=== PATIENT | female | born 1935 | race Caucasian/White ===

== ENCOUNTER 2024-11-12 10:41 | Outpatient (CLI) | payer MEDICARE, BC, SELFPAY ==
--- NOTE | 2024-11-12 13:13 | P.ANES_ITS ---
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
--- NOTE | 2024-11-12 13:13 | W.ANESCHARGE ---
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
== END 2024-11-12 10:42 | disposition home or self-care (01) ==
LOC: OP CLINIC 10:44
PROVIDERS: PCP Family Medicine; Visit Provider Internal Medicine Gastroenterology
DX: Z12.11 Encounter for screening for malignant neoplasm of colon (principal); D12.2 Benign neoplasm of ascending colon; D12.8 Benign neoplasm of rectum; K57.30 Diverticulosis of large intestine without perforation or abscess without bleeding; R10.13 Epigastric pain; R63.4 Abnormal weight loss; K31.89 Other diseases of stomach and duodenum; R19.8 Other specified symptoms and signs involving the digestive system and abdomen
CPT/HCPCS: 00813; 43239; 45385; 88305; 99100; J2371; J2704; J3010

== ENCOUNTER 2024-11-30 17:25 | Inpatient (IN) | payer MEDICARE, BC, SELFPAY ==
--- OUTSIDE RECORDS SUMMARY | 2024-11-30 17:30 | XMS_ITS | Clinical Summary ---
Author Organization [employer] Address [facility] [place] [address] Care Team Providers Care Senior Operations Analyst Name Role Phone Luana Bazan Primary Care Provider [phone]- [phone] Allergies Active Allergy Reactions Criticality Noted Date Comments Cephalexin Rash Low 09/30/2022 Morphine Itching 08/23/2012 Medications acetaminophen (TYLENOL EX STR ARTHRITIS PAIN) 500 mg tablet Take 1 tablet by mouth every 6 hours if needed. Max acetaminophen dose: 4000mg in 24 hrs. 0 02/12/20 14 Active Cholecalciferol, Vitamin D3, (VITAMIN D-3) 2,000 unit tablet Take 1 tablet by mouth once daily. 0 05/05/20 14 Active aspirin (ECOTRIN) 81 mg enteric coated tablet Take 1 tablet by mouth once daily with a meal. 0 10/26/19 16 Active Post Mastectomy BraIndications:His tory of mastectomy, left For personal use. 2 Packet 01/09/20 18 Active Breast ProsthesisIndicati ons:History of mastectomy, left Post mastectomy bra. For personal use.dx breast cancer 2 Each 10/25/19 22 Active Graduated Compression StockingsIndicatio ns:Bilateral lower extremity edema For personal use. Length: thigh Strength: 20-30 mmHg. Patient prefers open toe. 2 Packet 10/24/19 23 Active hydrocortisone (Cortizone-10) 1 % cream Apply topically to affected area(s) two times daily. Active triamcinolone 0.1 % ointmentIndication s:Stasis dermatitis Apply topically to affected area(s) two times daily. 30 g 2 02/16/20 24 Active amLODIPine (NORVASC) 5 mg tabletIndications: Essential hypertension Take 1 Tablet (5 mg) by mouth once daily. 90 Tablet 3 02/16/20 24 Active hydroCHLOROthiazid e 25 mg tabletIndications: Essential hypertension TAKE ONE TABLET BY MOUTH ONCE DAILY 90 Tablet 3 02/16/20 24 Active lisinopriL (PRINIVIL; ZESTRIL) 2.5 mg tabletIndications: Essential hypertension Take 1 Tablet (2.5 mg) by mouth once daily. 90 Tablet 3 02/16/20 24 Active metoprolol succinate (TOPROL XL) 100 mg Sustained-Release tabletIndications: Essential hypertension Take 1 Tablet (100 mg) by mouth once daily. 90 Tablet 02/16/20 24 Active pravastatin (PRAVACHOL) 40 mg tabletIndications: Hyperlipidemia, unspecified hyperlipidemia type One oral every other day at bedtime 45 Tablet 02/16/20 24 Active spironolactone (ALDACTONE) 25 mg tabletIndications: Essential hypertension,Bilat eral lower extremity edema Take 1 Tablet (25 mg) by mouth once daily in the morning. 90 Tablet 02/16/20 24 Active nitroglycerin (NITROSTAT) 0.4 mg sublingual tabletIndications: NSTEMI (non-ST elevation myocardial infarction) (HC) Place 1 Tablet (0.4 mg) under the tongue every 5 minutes if needed for Chest Pain. Up to 3 tablets in 15 minutes. 05/15/20 24 Active omeprazole 40 mg Delayed-Release capsuleIndications :Gastroesophageal reflux disease without esophagitis Take 1 Capsule (40 mg) by mouth once daily before a meal. 90 Capsule 11/05/19 25 Active polyethylene glycol-electrolyte 236-22.74-6.74 -5.86 gram suspensionIndicati ons:Encounter for screening colonoscopy Drink 2 liters the day before the procedure and 2 liters 6 hours prior to procedure. 4000 mL 11/10/19 25 Active amoxicillin 500 mg capsuleIndications :H. pylori infection Take 2 Capsules (1,000 mg) by mouth two times daily for 14 days. 56 Capsule 11/19/19 25 025 Active clarithromycin 500 mg tabletIndications: H. pylori infection Take 1 Tablet (500 mg) by mouth two times daily for 14 days. 28 Tablet 11/19/19 25 025 Active amoxicillin 500 mg capsuleIndications :H. pylori infection Take 2 Capsules (1,000 mg) by mouth two times daily for 14 days. 56 Capsule 11/19/19 25 025 Active Active Problems Problem Noted Date Diagnosed Date Stage 3b chronic kidney disease 11/05/2024 Essential hypertension 02/17/2024 Bilateral lower extremity edema 02/17/2024 Prediabetes 02/17/2024 Varicose veins of both lower extremities with pa in 02/17/2024 NSTEMI (non-ST elevation myocardial infarction) 02/16/2024 Edema, peripheral 12/19/2022 12/19/2022 Osteoarthritis of right hip 10/02/202209/18 Tendinitis involving right hip abductors 023 10/02/2022 Spinal stenosis, lumbar nicolas on, without neurogenic claudication 12/10/2016 Hyperlipidemia 04/19/2015 History of left breast cancer 05/19/2014 Hypertension 07/03/2010 Degeneration of Cervical Intervertebral Disc 09/2008 History of Laminectomy at L4-5 01/18/2009 Mod to Severe Lumbar Stenosis 01/18/2009 Resolved Problems Problem Noted Date Diagnosed Date Resolved Date Acute non Q wave GA (myocard ial infarction), initial episode of care 08/23/2012 04/29/2017 Encounters Date Type Department Care Team Description 11/22/2024 Telephone [facility] [address] [place] [address] Luana Bazan PA Questions (antibiotic and test result) 11/18/2024 Telephone [facility] [address] [place] [address] Luana Bazan PA Follow Up 11/18/2024 Orders Only [facility] [address] [place] [address] Luana Bazan PA Follow Up 11/18/2024 Telephone [facility] [address] [place] [address] Martin Raya MD Results (EGD & colonoscopy) 11/18/2024 Orders Only [facility] [address] [place] [address] Martin Raya MD <No scans attached> 11/16/2024 Telephone [facility] [address] [place] [address] Luana Bazan PA Questions 11/13/2024 Lab Requisition [facility] [phone] Martin Raya MD 11/13/2024 Lab Requisition [facility] [phone] Martin Raya MD 11/12/2024 12:45 PM CDT Office Visit [facility] at [address] [place] [address] Martin Raya MD 11/11/2024 10:30 AM CDT Office Visit [facility] [address] [facility] [place] [address] Luana Bazan PA Preoperative Exam (Dr. Raya[facility]-11/12/24-EGD /Colonoscopy) 11/11/2024 Travel 11/09/2024 Telephone [facility] [address] [facility] [address] Martin Raya MD Follow Up (Phone Call ) 11/09/2024 Telephone [facility] [address] [place] [address] Martin Raya MD Appointment 11/09/2024 Telephone [facility] [address] [place] [address] Martin Raya MD 11/09/2024 Orders Only [address] [address] Luana Bazan PA <No scans attached> 11/09/2024 Telephone [facility] [address] [place] [address] Luana Bazan PA Results (CT 11/08) 11/08/2024 3:30 PM CDT Ancillary Procedure [facility] [address] [facility] [place] [address] 11/08/2024 Travel 11/04/2024 2:50 PM CDT Office Visit [facility] [address] [place] [address] Luana Bazan PA Gi Problem (Pt states she can't eat and nothing tastes good and it's causing her stomach to [id number] not been sick but doesn't feel good-is losing weight) 11/04/2024 Travel 11/01/2024 Telephone [facility] [address] [place] [address] Cindy Castillo PA Weak; Dizziness from Last 3 Months Immunizations Immunization Administration Dates Next Due COVID-19 vaccine (Pfizer-Bio NTech 30mcg/0.3mL) 12YO+ BIVALENT PF, MDV 05/13/2022 COVID-19 vaccine (Pfizer-Bio NTech 30mcg/0.3mL) PF, MDV 06/18/2021,10/11/2020,09/20/2020 Influenza, High-dose Inactivated 04/22/2016,04/20,04/11/2014 Influenza, IIV3 (Age >=3 years) 04/22/20 13,07/02/2010,05/29/2009,2006 Influenza, Inactivated AIIV4 (Age 65+ Years) Preserv Free 04/01/2022,06/18/2021,06/16/2020 Influenza, Inactivated IIV3 (Age 65+ Years) Preserv Free 06/09/2019,06/03/2018,04/29/2017 Pneumococcal Poly,23-Valent (Pneumovax) 03/11/2004 Pneumococcal conj 13-Valent (Prevnar 13) 04/19/2015 Td (Age >=7 Years) 07/21/1997 Td, Preservative Free (age > = 7 Years) 09/09/2008 Tdap 03/03/2015 Family History Medical History Relation Name Comments Heart Disease Brother Cancer-breast Daughter Diabetes Mother Cancer-breast Other Niece Cancer-breast Sister 1 Diabetes Sister 1 3 sibs Cancer-breast Sister 2 Cancer-ovarian No Family History Relation Name Status Comments Brother Daughter Mother Other Niece Alive Sister 1 Sister 2 Social History Tobacco Use Types Packs/Day Years Used Date Smoking Tobacco: Never Smokeless Tobacco: Never Tobacco Cessation:Counseling Given: Yes Alcohol Use Standard Drinks/Week Comments Not Currently 0 (1 standard drink = 0.6 oz pur e alcohol) PHQ-2 Answer Date Recorded PHQ-2 TOTAL SCORE 0 02/16/2024 Social Connections Answer Date Recorded Do you often feel lonely or isolated from those around you? 0 11/04/2024 Financial Resource Strain Answer Date R ecorded Difficulty of Paying Living Expenses 3 11/04/2024 Difficulty of Paying Living Expenses Not on file 11/04/2024 Food Insecurity Answer Date Recorded Do you worry your food will run out before you are able to buy more? 1 11/04/2024 Transportation Needs Answer Date Record ed Does lack of transportation keep you from medica l appointments? 2 11/04/2024 Does lack of transportation keep you from work, meetings or getting things that you need? 1 11/04/2024 Housing Stability Answer Date Recorded What is your housing situation today? 1 11/04/2024 Utilities Answer Date Recorded Do you have trouble paying f or utilities (for example, heat, electricity, water, phone)? 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 Not on file Not on file Not on michelle e Obstetrics History Para Term AB IAB SAB Ectopic Multiple Livin g Live Births 5 5 5 Date Outcome GA Total Labor Labor/2nd/3rd Weight Sex Type Anes PTL Roberta A1 A5 Name Clin Term Term Term Term Term Last Filed Vital Signs Vital Sign Reading Time Taken Comments Blood Pressure 108/63 11/11/2024 10:33 AM CDT Pulse 53 11/11/2024 10:33 AM CDT Temperature 36.6 C (97.8 F) 02/13/2023 7:49 AM CDT Respiratory Rate 16 12/13/2016 7:45 AM CDT Oxygen Saturation 100% 11/11/2024 10:33 AM CDT Inhaled Oxygen Concentration - - Weight 77.1 kg (170 lb) 11/11/2024 10:33 AM CDT Height 160 cm (5' 3) 11/11/2024 10:33 AM CDT Body Mass Index 30.11 11/11/2024 10:33 AM CDT Plan of Treatment Health Maintenance Due Date Last Done Comments Zoster (shingles) series for age 50+ (1 of 2) 1985 RSV vaccine for adults or (1 - 1-dose 75+ series) 2010 COVID-19 vaccine series ( season) 2024 05/13/2022, 06/18/2021, 10/11/2020, Additional history exists Depression screening for age 12+ 02/15/2025 02/16/2024, 12/19/2022, 06/18/2021, Additional history exists Medicare Wellness for age 65+ 02/16/2025, 12/19/2022, 06/18/2021, Additional history exists Tetanus booster 03/03/2025 03/03/2015, 01/19, 09/09/2008, Additional history exists Influenza Vaccine (Season Ended) 2025 04/01/2022, 06/18/2021, 06/16/2020, Additional history exists BMI (ht and wt on same day) for age 18+ 11/11/2025 11/11/2024, 02/16/2024, 12/19/2022, Additional history exists Tdap Completed 03/03/2015, 03/03/2015 Pneumococcal series for age 50+ Completed 5, 03/11/2004 DEXA/DXA scan for age 65+ Completed 03/30/2018 Medical Devices Implanted Type Area Grinder Set Up Operator External Device Identifier Shelf Expiration Date Model / Serial / Lot [id number] ne 1-4mm 60cc Medtronic Fine Canclls Freeze Dried Implanted:Qty: 1 on 12/10/2016 by Evert Govea MD at [facility] Explanted:at [facility] (Quantity not on file) N/A: Spine Medtronic Spine/Ortho 07/01/2021 [id number] / [id number] / Bobby Lmbr 60x5.5mm Vitality Cvd Titnm - [id number] Implanted:Qty: 2 on 12/10/2016 by Evert Govea MD at [facility] N/A: Spine [employer] Spine [id number] 09# / / Set Screw Lmbr 5.5-6mm Vitality Torque - [id number] Implanted:Qty: 3 on 12/10/2016 by Evert Govea MD at [facility] N/A: Spine [employer] Spine [id number] 01# / / Set Screw Lmbr 5.5-6mm Vitality Shear Off - [id number] Implanted:Qty: 3 on 12/10/2016 by Evert Govea MD at [facility] N/A: Spine [employer] Spine [id number] 01# / / Screw Lmbr Post 6.5x45mm Vitality Va - [id number] Implanted:Qty: 6 on 12/10/2016 by Evert Govea MD at [facility] N/A: Spine [employer] Spine [id number] 75# / / Procedures Procedure Name Priority Date/Time Associated Diagnosis Comments LAB TRACKING EVENT Routine 11/12/2024 12 :56 PM CDT LAB TRACKING EVENT Routine 11/12/2024 12 :33 PM CDT PATH TISSUE EXAM Routine 11/12/2024 12:3 3 PM CDT COLONOSCOPY DIAGNOSTIC MARCO ANTONIO 7:09 AM CDT Unintentional weight loss Loss of appetite ESOPHAGOGASTRODUODENOSCOPY MAR[place] ANTONIO 11/12 12:00 AM CDT Unintentional weight loss Upper abdominal pain Loss of appetite CT ABDOMEN PELVIS WO MARCO ANTONIO 11/08/2024 3:41 PM CDT Weight loss Loss of appetite Upper abdominal pain CBC WITH AUTO DIFFERENTIAL Routine 11/04 3:37 PM CDT Weight loss COMP METABOLIC PANEL Routine 11/04/2024 3:37 PM CDT Weight loss LIPASE Routine 11/04/2024 3:37 PM CDT Weight loss C-REACTIVE PROTEIN Routine 11/04/2024 3: 37 PM CDT Weight loss SEDIMENTATION RATE Routine 11/04/2024 3: 37 PM CDT Weight loss TSH Routine 11/04/2024 3:37 PM CDT Weight loss SCAN-BONE DENSITOMETRY DEXA 03/21 12:00 AM CDT from Last 3 Months or Most Recently Relevant to Health Maintenance Results * LAB TRACKING EVENT (11/12/2024 12:56 PM CDT) Only the most recent of2 resultswithin the time period is included. Other (Other) Client Collect / Unknown 11/12/2024 12:56 PM CDT 11/13/2024 7:31 AM CDT us Martin Raya MD LAB BILL ONLY Final Res ult [facility] [address] [place] [address], * PATH TISSUE EXAM (11/12/2024 12:33 PM CDT) Case Report Pathology Report Case: [id number] Authorizing Provider: Martin Raya MD Collected: 11/12/2024 1233 Ordering Location: [facility] Received: 11/13/2024 1056 Pathologist: Queenie Medina DO Specimens: A) - Duodenum Biopsy B) - C) - D) - 11/17/2024 4:02 PM CDT [facility] Final Diagnosis A) DUODENUM, BIOPSY: 1. Normal duodenal mucosa 2. Negative for celiac disease and other enteropathy B) STOMACH, ANTRUM, BIOPSY: 1. Helicobacter gastritis (rare organisms identified on H&E stain) 2. Negative for atrophic gastritis and dysplasia 3. Sampling: Antral-duodenal transitional and antral mucosae C) STOMACH, BODY, BIOPSY: 1. Helicobacter gastritis (numerous organisms identified on H&E stain) 2. Negative for atrophic gastritis and dysplasia 3. Sampling: Body mucosa D) COLON, DESCENDING, POLYPECTOMIES: 1. Tubular adenoma (1) and sessile serrated adenomas (2, including larger polyp fragments) 2. Negative for high grade dysplasia 3. Per the colonoscopy report: a. Polyp sizes: 4 mm - 5 mm b. Resection: Complete c. Retrieval: Complete 11/17/2024 4:02 PM CDT [facility] at 1602 CDT Clinical Information Ms. Morrow is a 89 y.o. who presents for upper endoscopy examination and colonoscopy examination. Upper endoscopy revealed erythematous mucosa within the stomach and a normal duodenum. Colonoscopy examination revealed multiple polyps. 11/17/2024 4:02 PM CDT [facility] Gross Description A) Received in formalin are 5 bustamante mucosal fragments ranging from 2 mm to 4 mm in greatest dimension, which are entirely submitted in one cassette. It is labeled with the patient's name and designated duodenum biopsy. B) Received in formalin are 7 bustamante mucosal fragments ranging from 1 mm to 7 mm in greatest dimension, which are entirely submitted in one cassette. It is labeled with the patient's name and designated stomach, gastric antrum. C) Received in formalin are 7 bustamante mucosal fragments ranging from 1 mm to 6 mm in greatest dimension, which are entirely submitted in one cassette. It is labeled with the patient's name and designated stomach, gastric body. Toshia Pruitt 11/16/2024 11:00 AM D) Received in formalin, labeled with the patient's name and ascending colon multiple polyps, are 7 hernandez-bustamante polypoid soft tissues ranging 0.2-0.4 cm which are submitted in toto in 1 cassette. Time and date in formalin: 1256 on 11/12/2024 LDW 11/13/2024 11/17/2024 4:02 PM CDT [employer] [facility] EN[facility]AL LAB[facility]ATORY Microscopic Description The final diagnosis is based on microscopic examination of appropriate sections of all specimens. 11/17/2024 4:02 PM CDT [employer] [facility] Additional Information Interpreted at [facility] [employer] [facility], Central Laboratory - [address] [address] 11/17/2024 4:02 PM CDT [facility] [employer] [facility] Other (Duodenum Biopsy) 11/12/2024 12:33 PM CDT 11/13/2024 10:56 AM CDT Specimen (specimen) 11/12/2024 12:33 PM CDT 11/13/2024 10:56 AM CDT Specimen (specimen) 11/12/2024 12:33 PM CDT 11/13/2024 10:56 AM CDT Specimen (specimen) 11/12/2024 12:56 PM CDT 11/13/2024 12:12 PM CDT us Martin Raya MD PATHOLOGY/CYTOLOGY Final Result [facility] [address] [place] [id number], [place] * ESOPHAGOGASTRODUODENOSCOPY (11/12/2024 12:00 AM CDT) us Luana PEÑA GI PROCEDURE ORD Final Res ult * CT ABDOMEN PELVIS WO (11/08/2024 3:41 PM CDT) Anatomical Region Laterality Modality Abdomen, Pelvis, AORTA, LIVER, SPLEEN Computed Tomography 11/08/2024 4:12 PM CDT Addenda Addendum by Ok Marsh MD on 11/11/2024 11:14 AM CDT For Patients: As a result of the Century Cures Act, medical imaging exams and procedure reports are released immediately into your electronic medical record. You may view this report before your referring provider. If you have questions, please contact your health care provider. ADDENDUM: Correction to technique. Patient refused the IV contrast administration. The study was therefore performed without contrast only. CRL:jj INDICATION: Unintentional weight loss. Upper abdominal pain. Left mastectomy. TECHNIQUE : Contrast-enhanced abdominopelvic CT. 75 cc nonionic Omnipaque administered. A reduced dose reportedly was administered due to abnormal laboratory values. COMPARISON: None. FINDINGS: Surgically absent left breast. The visualized included right breast is unremarkable. Vascular calcifications within the coronary artery distribution and thoracic aorta. There are no pleural or pericardial effusions. Clear included lung bases. Few scattered low-dense lesions in liver likely cysts. No intrahepatic biliary ductal dilatation. The spleen, pancreas, and adrenal glands are normal. No hydronephrosis of either kidney. Small bilateral renal cysts. Small cyst lower pole left kidney with subtle peripheral calcifications likely a Bosniak II cyst. Nonvisualization of the gallbladder which may be surgically absent or completely contracted. Dense vascular calcification within the abdominal aorta and iliac arteries. The inferior vena cava is unremarkable. The stomach and duodenum although incompletely distended are within normal limits. There is no evidence for small or large bowel obstruction or ileus. No ascites or abdominal pelvic/inguinal lymphadenopathy. Vascular calcification within the uterus may reflect calcified fibroids as well as some arterial vascular calcification. No adnexal masses. No evidence for appendicitis or diverticular disease. The included skeleton demonstrates a 3 level lumbar spine fusion with bilateral pedicle screws at L3, L4, and L5. Degenerative disc disease at T11, less so at L1, as well as at L2 and L3. Multilevel degenerative facet arthropathy. There are no lytic or blastic lesions within the included skeleton and no acute fractures. IMPRESSION: 1. Surgically absent left breast. No pulmonary nodules in either lung base. 2. Few low-dense lesions the liver most likely cysts. 3. Small left renal cyst with peripheral mural calcifications (Bosniak II). 4. No convincing evidence for occult malignancy or metastatic disease. Please note that all CT scans at this facility use dose modulation, iterative reconstruction, and/or weight-based dosing when appropriate to reduce radiation dose to as low as reasonably achievable. Dictated by Ok Marsh MD @ 11/08/2024 4:12:06 PM Signed by: Ok Marsh @ 11/08/2024 4:12:06 PM (Electronic Signature) (Electronically Signed) Impressions 11/08/2024 4:12 PM CDT 1. Surgically absent left breast. No pulmonary nodules in either lung base. 2. Few low-dense lesions the liver most likely cysts. 3. Small left renal cyst with peripheral mural calcifications (Bosniak II). 4. No convincing evidence for occult malignancy or metastatic disease. Please note that all CT scans at this facility use dose modulation, iterative reconstruction, and/or weight-based dosing when appropriate to reduce radiation dose to as low as reasonably achievable. Dictated by Ok Marsh MD @ 11/08/2024 4:12:06 PM (Electronically Signed) Narrative 11/08/2024 4:12 PM CDT For Patients: As a result of the Century Cures Act, medical imaging exams and procedure reports are released immediately into your electronic medical record. You may view this report before your referring provider. If you have questions, please contact your health care provider. INDICATION: Unintentional weight loss. Upper abdominal pain. Left mastectomy. TECHNIQUE : Contrast-enhanced abdominopelvic CT. 75 cc nonionic Omnipaque administered. A reduced dose reportedly was administered due to abnormal laboratory values. COMPARISON: None. FINDINGS: Surgically absent left breast. The visualized included right breast is unremarkable. Vascular calcifications within the coronary artery distribution and thoracic aorta. There are no pleural or pericardial effusions. Clear included lung bases. Few scattered low-dense lesions in liver likely cysts. No intrahepatic biliary ductal dilatation. The spleen, pancreas, and adrenal glands are normal. No hydronephrosis of either kidney. Small bilateral renal cysts. Small cyst lower pole left kidney with subtle peripheral calcifications likely a Bosniak II cyst. Nonvisualization of the gallbladder which may be surgically absent or completely contracted. Dense vascular calcification within the abdominal aorta and iliac arteries. The inferior vena cava is unremarkable. The stomach and duodenum although incompletely distended are within normal limits. There is no evidence for small or large bowel obstruction or ileus. No ascites or abdominal pelvic/inguinal lymphadenopathy. Vascular calcification within the uterus may reflect calcified fibroids as well as some arterial vascular calcification. No adnexal masses. No evidence for appendicitis or diverticular disease. The included skeleton demonstrates a 3 level lumbar spine fusion with bilateral pedicle screws at L3, L4, and L5. Degenerative disc disease at T11, less so at L1, as well as at L2 and L3. Multilevel degenerative facet arthropathy. There are no lytic or blastic lesions within the included skeleton and no acute fractures. Procedure Note Ok Marsh MD - 11/08/2024 For Patients: As a result of the 21st Century Cures Act, medical imagingexams and procedure reports are released immediately into your electronicmedical record. You may view this report before your referring provider.If you have questions, please contact your health care provider. INDICATION: Unintentional weight loss. Upper abdominal pain. Left mastectomy. TECHNIQUE : Contrast-enhanced abdominopelvic CT. 75 cc nonionic Omnipaque administered. A reduced dose reportedly was administered due to abnormal laboratoryvalues. COMPARISON: None. FINDINGS: Surgically absent left breast. The visualized included right breast isunremarkable. Vascular calcifications within the coronary artery distribution andthoracic aorta. There are no pleural or pericardial effusions. Clear included lungbases. Few scattered low-dense lesions in liver likely cysts. No intrahepaticbiliary ductal dilatation. The spleen, pancreas, and adrenal glands are normal. No hydronephrosis of either kidney. Small bilateral renal cysts. Small cyst lower pole left kidney with subtle peripheral calcificationslikely a Bosniak II cyst. Nonvisualization of the gallbladder which may be surgically absent orcompletely contracted. Dense vascular calcification within the abdominal aorta and iliacarteries. The inferior vena cava is unremarkable. The stomach and duodenum although incompletely distended are within normallimits. There is no evidence for small or large bowel obstruction or ileus. No ascites or abdominal pelvic/inguinal lymphadenopathy. Vascular calcification within the uterus may reflect calcified fibroids aswell as some arterial vascular calcification. No adnexal masses. No evidence for appendicitis or diverticular disease. The included skeleton demonstrates a 3 level lumbar spine fusion withbilateral pedicle screws at L3, L4, and L5. Degenerative disc disease at T11, less so at L1, as well as at L2 and L3.Multilevel degenerative facet arthropathy. There are no lytic or blastic lesions within the included skeleton and noacute fractures. IMPRESSION: 1. Surgically absent left breast. No pulmonary nodules in either lungbase. 2. Few low-dense lesions the liver most likely cysts. 3. Small left renal cyst with peripheral mural calcifications (BosniakII). 4. No convincing evidence for occult malignancy or metastatic disease. Please note that all CT scans at this facility use dose modulation,iterative reconstruction, and/or weight-based dosing when appropriate toreduce radiation dose to as low as reasonably achievable. Dictated by Ok Marsh MD @ 11/08/2024 4:12:06 PM (Electronically Signed) us Luana PEÑA CT Edited Res ult - Final * (ABNORMAL) SEDIMENTATION RATE (11/04/2024 3:37 PM CDT) SED RATE BY MODIFIED WESTERGREN 55(H) < OR = 30 mm/h [facility] Blood BLOOD SPECIMEN / Unknown 11/04/2024 3:37 PM CDT 11/04/2024 3:38 PM CDT Narrative [facility] - 11/05/2024 7:02 AM CDT FASTING:NO FASTING: NO Luana PEÑA HEMATOLOGY Final Resu lt [facility] [address] [place] [address], [place] [phone] [facility] [address] [place] [address] * TSH (11/04/2024 3:37 PM CDT) TSH 1.40 0.40 - 4.50 mIU/L [facility] Blood BLOOD SPECIMEN / Unknown 11/04/2024 3:37 PM CDT 11/04/2024 3:38 PM CDT Narrative [facility] - 11/05/2024 5:44 AM CDT FASTING:NO FASTING: NO Luana PEÑA CHEMISTRY Final Resu lt Performing Organization Address [facility]/ZIP Co de Phone Number [facility] [address] [place] [address], [place] [phone] [facility] [address] [place] [address] * C-REACTIVE PROTEIN (11/04/2024 3:37 PM CDT) C-REACTIVE PROTEIN <3.0 <8.0 mg/L [facility] Blood BLOOD SPECIMEN / Unknown 11/04/2024 3:37 PM CDT 11/04/2024 3:38 PM CDT Narrative [facility] - 11/05/2024 10:57 AM CDT FASTING:NO FASTING: NO Luana PEÑA CHEMISTRY Final Resu lt Performing Organization Address City/[facility]/ZIP Co de Phone Number [facility] [address] [place] [address], [place] [phone] [facility] [address] [place] [address] * CBC AND DIFFERENTIAL (11/04/2024 3:37 PM CDT) [facility] WHITE BLOOD CELL COUNT 5.8 3.8 - 10.8 Thousand/u L [facility] RED BLOOD CELL COUNT 4.02 3.80 - 5.10 Million/uL [facility] HEMOGLOBIN 12.1 11.7 - 15.5 g/dL [facility] HEMATOCRIT 36.9 35.0 - 45.0 % [facility] MCV 91.8 80.0 - 100.0 fL [facility] MCH 30.1 27.0 - 33.0 pg [facility] MCHC 32.8 32.0 - 36.0 g/dL [facility] Comment: For adults, a slight decrease in the calculated MCHC value (in the range of 30 to 32 g/dL) is most likely not clinically significant; however, it should be interpreted with caution in correlation with other red cell parameters and the patient's clinical condition. RDW 12.8 11.0 - 15.0 % [facility] PLATELET COUNT 245 140 - 400 Thousand/u L [facility] MPV 11.0 7.5 - 12.5 fL [facility] ABSOLUTE NEUTROPHILS 3,399 1,500 - 7,800 cells/uL [facility] ABSOLUTE LYMPHOCYTES 1,473 850 - 3,900 cells/uL [facility] ABSOLUTE MONOCYTES 806 200 - 950 cells/uL [facility] ABSOLUTE EOSINOPHILS 70 15 - 500 cells/uL [facility] ABSOLUTE BASOPHILS 52 0 - 200 cells/uL [facility] NEUTROPHILS 58.6 % [facility] LYMPHOCYTES 25.4 % [facility] MONOCYTES 13.9 % [facility] EOSINOPHILS 1.2 % [facility] BASOPHILS 0.9 % [facility] Blood BLOOD SPECIMEN / Unknown 11/04/2024 3:37 PM CDT 11/04/2024 3:38 PM CDT Narrative [facility] - 11/05/2024 3:26 AM CDT FASTING:NO FASTING: NO Luana PEÑA HEMATOLOGY Final Resu lt Performing Organization Address [facility]/ZIP Co de Phone Number [employer] [facility] [address] [place] [address], [place] [phone] [facility] [address] [place] [address] * LIPASE (11/04/2024 3:37 PM CDT) Pathologist [facility] LIPASE 47 7 - 60 U/L [facility] Blood BLOOD SPECIMEN / Unknown 11/04/2024 3:37 PM CDT 11/04/2024 3:38 PM CDT Narrative [facility] - 11/05/2024 4:59 AM CDT FASTING:NO FASTING: NO Luana PEÑA CHEMISTRY Final Resu lt Performing Organization Address [facility]/ZIP Co de Phone Number [employer] [facility] [address] [place] [address], [place] [phone] [facility] [address] [place] [address] * (ABNORMAL) COMP METABOLIC PANEL (11/04/2024 3:37 PM CDT) GLUCOSE 104 65 - 139 mg/dL [facility] Comment: Non-fasting reference interval UREA NITROGEN (BUN) 45(H) 7 - 25 mg/dL [facility] CREATININE 1.68(H) 0.60 - 0.95 mg/dL [facility] EGFR 29(L) > OR = 60 mL/min/1.7 3m2 [facility] BUN/CREATININE RATIO 27(H) 6 - 22 (calc) [facility] SODIUM 139 135 - 146 mmol/L [facility] POTASSIUM 4.2 3.5 - 5.3 mmol/L [facility] CHLORIDE 105 98 - 110 mmol/L [facility] CARBON DIOXIDE 21 20 - 32 mmol/L [facility] CALCIUM 9.8 8.6 - 10.4 mg/dL [facility] PROTEIN, TOTAL 6.9 6.1 - 8.1 g/dL [facility] ALBUMIN 4.4 3.6 - 5.1 g/dL [facility] GLOBULIN 2.5 1.9 - 3.7 g/dL (calc) [facility] ALBUMIN/GLOBULIN RATIO 1.8 1.0 - 2.5 (calc) [facility] BILIRUBIN, TOTAL 0.4 0.2 - 1.2 mg/dL [facility] ALKALINE PHOSPHATASE 74 37 - 153 U/L [facility] AST 15 10 - 35 U/L [facility] ALT 12 6 - 29 U/L [facility] Blood BLOOD SPECIMEN / Unknown 11/04/2024 3:37 PM CDT 11/04/2024 3:38 PM CDT Narrative [facility] - 11/05/2024 4:59 AM CDT FASTING:NO FASTING: NO us Luana PEÑA CHEMISTRY Final Resu lt [facility] [address] [place] [address], [facility] [address] [place] [address] * SCAN-BONE DENSITOMETRY DEXA (03/30/2018 12:00 AM CDT) Anatomical Region Laterality Modality Other us Scanner OTHER Final Result from Last 3 Months or Most Recently Relevant to Health Maintenance Insurance MEDICARE PART A HB ONLY MEDICARE PART B HB ONLY [employer] [place] [employer] MR PB ONLY [employer] [place] HB ONLY Advance Directives * Full Code (Latest Code Status on File) Date Activated Date Inactivated Comments 12/10/2016 12:39 PM 12/13/2016 1:28 PM * Full Code Date Activated Date Inactivated Comments 12/10/2016 5:44 AM 12/10/2016 12:28 PM * Full Code Date Activated Date Inactivated Comments 08/23/2012 10:49 PM 08/26/2012 2:20 PM Care Teams Senior Operations Analyst Relationship Specialty Start Date End Date Luana Bazan PA [address] [place] [address] PCP - General Physician Explosive Technician 02/17/24
[2024-11-30 17:38] VITALS: BP 102/50; PULSE 63; RESP 18; TEMP 36.4; O2SAT 91; BMI 28.3
--- NOTE | 2024-11-30 17:45 | CRLHL7_ITS ---
For Patients: As a result of the Cures Act, medical imaging exams and procedure reports are released immediately into your electronic medical record. You may view this report before your referring provider. If you have questions, please contact your health care provider. INDICATION: Fall, pelvic hip injury TECHNIQUE: Pelvis radiograph, Hip radiograph 3 views left COMPARISON: None FINDINGS: Bone: No acute fractures or aggressive bone lesions are identified. 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 Moderate diffuse osteopenia is present. Joint: Mild bilateral hip osteoarthritis is noted. The visualized sacroiliac joints are unremarkable in appearance. The pubic symphysis is normal in appearance. Soft tissue: Unremarkable. No radiopaque foreign bodies are seen. IMPRESSION: 1. No acute osseous injuries or abnormalities are noted. Dictated by Luis Hutchison MD @ 11/30/2024 6:54:51 PM Dictated by: Luis Hutchison MD @ 11/30/2024 18:54:54 (Electronically Signed)
--- NOTE | 2024-11-30 18:21 | ED.GENADULT ---
HPI - General Adult General Date Seen: 11/30/24 Chief complaint: Fall/Minor Trauma Stated complaint: fall Time Seen by Provider: 11/30/24 17:34 History of Present Illness HPI narrative: Patient is an 89-year-old woman who lives independently, she has family who live nearby, she was walking out to the mailbox apparently using her walker, she says that she has neuropathy in sometimes she gets a sharp pain in her leg, this happened as she was walking and she fell landing on her left side. She has continued pain in her left upper thigh although it is not clear whether this is the pain that started before she fell or whether she has new pain since falling. Denies other injuries or complaints, has not walked since the injury. Denies head or neck injury. She is not anticoagulated. Her granddaughter is here with her. She was not given anything by paramedics. Related Data Home Medications ?Medication ?Instructions ?Recorded ?Confirmed allopurinol 100 mg tablet 300 mg PO QDAY 06/24/22 12/01/24 amlodipine 5 mg tablet 5 mg PO QDAY 06/24/22 12/01/24 hydrochlorothiazide 25 mg tablet 25 mg PO QDAY 06/24/22 12/01/24 metoprolol succinate 100 mg 100 mg PO DAILY 06/24/22 12/01/24 tablet,extended release 24 hr pravastatin 40 mg tablet 40 mg PO .qod 06/24/22 12/01/24 spironolactone 25 mg tablet 25 mg PO QDAY 06/24/22 12/01/24 lisinopril 2.5 mg tablet 2.5 mg PO QDAY 06/25/22 12/01/24 amoxicillin 500 mg capsule mg 12/01/24 aspirin 81 mg tablet,delayed mg 12/01/24 release clarithromycin 500 mg tablet mg 12/01/24 ibuprofen 200 mg tablet 400 mg PO TID PRN 12/01/24 12/01/24 omeprazole 40 mg capsule,delayed mg 12/01/24 release Allergies Allergy/AdvReac Type Severity Reaction Status Date / Time morphine Allergy Mild Itching Verified 10/14/22 14:23 Cephalexin Allergy Mild Rash Uncoded 09/30/22 07:47 [facility] Medical History (Updated 12/01/24 @ 00:40 by David Ford MD) Acute kidney injury ?N17.9 - Acute kidney failure, unspecified (ICD-10) Varicose veins of both lower extremities with pain (02/17/24) ?I83.813 - Varicose veins of bilateral lower extremities with pain (ICD-10) Stage 3b chronic kidney disease (11/05/24) ?N18.32 - Chronic kidney disease, stage 3b (ICD-10) Spinal stenosis of lumbar region (04/16/13) ?M48.061 - Spinal stenosis, lumbar region without neurogenic claudication (ICD-10) Prediabetes (02/17/24) ?R73.03 - Prediabetes (ICD-10) Malignant neoplasm of breast ?C50.919 - Malignant neoplasm of unspecified site of unspecified female breast (ICD-10) History of left breast cancer (05/19/14) ?Z85.3 - Personal history of malignant neoplasm of breast (ICD-10) Essential hypertension (02/17/24) ?I10 - Essential (primary) hypertension (ICD-10) Chronic back pain (04/16/13) ?M54.9 - Dorsalgia, unspecified (ICD-10) ?G89.29 - Other chronic pain (ICD-10) Acute shoulder pain ?M25.519 - Pain in unspecified shoulder (ICD-10) Acute low back pain (04/16/13) ?M54.50 - Low back pain, unspecified (ICD-10) Tendinitis involving right hip abductors (10/02/22) ?M76.891 - Other specified enthesopathies of right lower limb, excluding foot (ICD-10) Spinal stenosis, lumbar region, without neurogenic claudication (12/10/16) ?M48.061 - Spinal stenosis, lumbar region without neurogenic claudication (ICD-10) Osteoarthritis of right hip (10/02/22) ?M16.11 - Unilateral primary osteoarthritis, right hip (ICD-10) NSTEMI (non-ST elevation myocardial infarction) (02/16/24) ?I21.4 - Non-ST elevation (NSTEMI) myocardial infarction (ICD-10) Hypertension (07/03/10) ?I10 - Essential (primary) hypertension (ICD-10) Hyperlipidemia (04/19/15) ?E78.5 - Hyperlipidemia, unspecified (ICD-10) Edema, peripheral (12/19/22) ?R60.0 - Localized edema (ICD-10) Degeneration of cervical intervertebral disc (02/20/09) ?M50.30 - Other cervical disc degeneration, unspecified cervical region (ICD-10) Bilateral lower extremity edema (02/17/24) ?R60.0 - Localized edema (ICD-10) Malnutrition ?E46 - Unspecified protein-calorie malnutrition (ICD-10) Weight loss, non-intentional ?R63.4 - Abnormal weight loss (ICD-10) Poor appetite ?R63.0 - Anorexia (ICD-10) Bad taste in mouth ?R43.8 - Other disturbances of smell and taste (ICD-10) Non-STEMI (non-ST elevated myocardial infarction) ?I21.4 - Non-ST elevation (NSTEMI) myocardial infarction (ICD-10) Bilateral lower extremity edema ?R60.0 - Localized edema (ICD-10) Degeneration of cervical intervertebral disc ?M50.30 - Other cervical disc degeneration, unspecified cervical region (ICD-10) Hypertension ?I10 - Essential (primary) hypertension (ICD-10) Hyperlipidemia ?E78.5 - Hyperlipidemia, unspecified (ICD-10) Spinal stenosis of lumbar region without neurogenic claudication ?M48.061 - Spinal stenosis, lumbar region without neurogenic claudication (ICD-10) Surgical History H/O bilateral cataract extraction (10/08/10) ?Z98.41 - Cataract extraction status, right eye (ICD-10) ?Z98.42 - Cataract extraction status, left eye (ICD-10) 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) ?Z96.652 - Presence of left artificial knee joint (ICD-10) Status post total right knee replacement using cement (03/06/04) ?Z96.651 - Presence of right artificial knee joint (ICD-10) History of left mastectomy ?Z90.12 - Acquired absence of left breast and nipple (ICD-10) History of cholecystectomy ?Z90.49 - Acquired absence of other specified parts of digestive tract (ICD-10) History of appendectomy ?Z90.49 - Acquired absence of other specified parts of digestive tract (ICD-10) History of laminectomy ?Z98.890 - Other specified postprocedural states (ICD-10) History of left breast biopsy ?Z98.890 - Other specified postprocedural states (ICD-10) Family History (Updated 12/01/24 @ 00:29 by David Ford MD) Sister Breast cancer Diabetes Daughter Breast cancer Mother Diabetes Other Heart disease Social History (Updated 12/01/24 @ 00:31 by David Ford MD) Narrative: , lives in apartment in [place] by herself. Family nearby for support. She does not smoke. She rarely drinks alcohol. Code status is DNR. Her son Kalra and granddaughter Bianca would be healthcare power of prosecuting attorney Smoking Status: Never smoker Do you use any of these nicotine containing products: None Second hand tobacco smoke exposure: No How often do you have a drink containing alcohol: never How often do you have six or more drinks on one occasion: Never AUDIT-C Alcohol total score: 0 Non-prescribed substance use: denies use Exam Narrative: Exam Narrative: Vital signs reviewed In general, alert, nontoxic elderly woman, she looks comfortable. Head: Normocephalic, atraumatic. Eyes: Sclera clear. Pupils equal and reactive. ENT: Mucous membranes moist. Neck: Supple without adenopathy. Nontender to palpation. Heart: Regular rate and rhythm without murmur. Lungs: Clear. No increased work of breathing, crackles or wheezes. Abdomen: Soft, nontender to palpation. Extremities: Well perfused, pulses intact. No significant edema. She has a lipoma on her left upper thigh. No other swelling, bruising or deformity. No tenderness to palpation. She notes some pain near that lipoma when I range her left hip, but does not seem to have any pain in the hip itself, she does not have any pain at all with internal-external rotation of hip. Right hip is normal. Upper extremities normal. Neurologic: Alert, conversant. Speech fluent, face symmetric. Moves all extremities equally. Skin: Warm, dry well perfused. Affect: Normal. Const: Vital Signs, click to edit/add: Vital Signs - 24 hr 11/30/24 17:38 11/30/24 21:11 11/30/24 23:07 Temperature 97.5 F L Pulse Rate 61 65 Pulse Rate [Pulse Oximeter] 63 Respiratory Rate 18 16 16 Blood Pressure 108/59 L 117/53 L Blood Pressure [Ri ght Upper Arm] 102/50 L Pulse Oximetry 91 99 98 Oxygen Delivery Me thod Room Air Room Air Room Air Course Course ED Course: I ordered x-rays of the left hip, I do not see any obvious fracture. She says at home she takes ibuprofen, she does note that her doctor would like her to take Tylenol instead but Tylenol does not help her so she takes ibuprofen. As such, will give her a couple of ibuprofen here, and see how she feels standing on that leg. Patient was ambulatory with her walker without difficulty. Discussed discharge home, her granddaughter did express that she had concerns about her going home because she has not had an appetite and was wondering if she could stay in hospital. We talked about the fact that staying in the hospital simply due to lack of appetite would probably be difficult, but I did suggest we check some labs just to see if there is anything that would require hospitalization in terms of electrolytes, dehydration etcetera. Her CBC was unremarkable but her metabolic panel showed marked acute kidney injury with a creatinine of 8.3. Her BUN is elevated at 93, her potassium was 5.7. She is acidotic with a CO2 of 11 and gap is elevated at 23 this is likely related to her uremia. In talking with her, she does continue to make urine although it sounds like she is not urinating particularly frequently. She did provide a urine sample here, this is notable for 5-10 red cells and 25-50 white blood cells moderate squamous cells many bacteria. 3+ protein. I have discussed her lab findings with the patient and her granddaughter. Reviewed the serious nature of her kidney disease, discussed dialysis as a concept, at this time I am not sure that the patient is entirely cognitively able to make this kind of decision tonight, I suspect that family will want to talk with her more about it. Right now, she is suggesting to me that she would simply want to remain comfortable if her kidneys do not improve with conservative measures. She did complain of some back pain which she indicated was in the mid low back, she said that this had been hurting since she fell although she did not mention it when we initially talked. In any case, I did order a CT scan of the abdomen and pelvis without contrast, and she had recounts done of the lumbar spine. No significant findings aside from degenerative changes. She had 0.25 mg of Dilaudid for pain control. Care discussed with Dr. Ford who has accepted her to the hospitalist service. I ordered D5W with sodium bicarb for initial fluid management. Vital Signs Vital signs: Initial Vital Signs Temperature 97.5 F L 11/30/24 17:38 Temperature Source Temporal Artery Scan 11/30/24 17:38 Pulse Rate 63 11/30/24 17:38 Respiratory Rate 18 11/30/24 17:38 Blood Pressure 102/50 L 11/30/24 17:38 Blood Pressure Mean 67 L 11/30/24 17:38 Blood Pressure Position Sitting 11/30/24 17:38 Pulse Oximetry 91 11/30/24 17:38 Oxygen Delivery Method Room Air 11/30/24 17:38 Vital Signs Temperature 97.5 F L 11/30/24 17:38 Pulse Rate 63 11/30/24 17:38 Respiratory Rate 18 11/30/24 17:38 Blood Pressure 102/50 L 11/30/24 17:38 Pulse Oximetry 91 11/30/24 17:38 Oxygen Delivery Method Room Air 11/30/24 17:38 Temperature 97.5 F L 11/30/24 17:38 Pulse Rate 65 11/30/24 23:07 Respiratory Rate 16 11/30/24 23:07 Blood Pressure 117/53 L 11/30/24 23:07 Pulse Oximetry 98 11/30/24 23:07 Oxygen Delivery Method Room Air 11/30/24 23:07 Medications Administered Medications: Generic Name Dose Route Start Last Admin Trade Name Freq PRN Reason Stop Dose Admin Sodium Bicarbonate 150 meq/ 1,150 mls @ 250 mls/hr 12/01/24 00:20 12/01/24 00:43 Dextrose IV 12/01/24 04:55 Not Given .Q4H36M ALBAN Discontinued Medications Generic Name Dose Route Start Last Admin Trade Name Freq PRN Reason Stop Dose Admin Hydromorphone HCl 0.25 mg 11/30/24 22:19 11/30/24 23:02 Hydromorphone 0.5 Mg/0.5 Ml Inj IVP 11/30/24 22:20 0.25 mg ONCE ONE Administration Sodium Bicarbonate 150 meq/ 1,150 mls @ 150 mls/hr 11/30/24 22:00 12/01/24 00:45 Dextrose IV 12/01/24 05:39 250 mls/hr .Q7H40M ALBAN Infusion Sodium Bicarbonate 250 meq/ 1,250 mls @ 150 mls/hr 12/01/24 00:02 12/01/24 00:45 Dextrose IV 12/01/24 08:19 Not Given .Q8H20M ALBAN Ibuprofen 400 mg 11/30/24 18:08 11/30/24 18:23 Ibuprofen 200 Mg Tablet PO 11/30/24 18:09 400 mg ONCE ONE Administration Medical Decision Making Lab Data Lab results reviewed: Yes I reviewed the patient's lab results Labs: Lab Results 11/30/24 11/30/24 11/30/24 Range/Units 19:36 20:35 21:18 WBC 7.77 (4.50-11.00) K/uL RBC 3.70 L (4.00-5.20) m/uL Hgb 11.1 L (12.0-16.0) gm/dL Hct 33.6 (33.0-51.0) % MCV 91 (80-100) fL MCH 30 (26-34) pg MCHC 33 (32-36) gm/dL RDW Coeff of James 13.6 (11.5-15.5) % Plt Count 201 (140-440) K/uL Neut % (Auto) 73.0 H (42.0-72.0) % Lymph % (Auto) 14.8 L (20-44) % Stephens % (Auto) 10.9 (0.0-11.0) % Eos % (Auto) 0.5 (0.0-7.0) % Baso % (Auto) 0.5 (0.0-3.0) % Neut # (Auto) 5.70 (1.7-7.0) K/uL Lymph # (Auto) 1.10 (0.90-2.90) K/uL Stephens # (Auto) 0.80 (0.00-0.90) K/UL Eos # (Auto) 0.04 (0.00-0.50) K/uL Baso # (Auto) 0.04 (0.00-0.30) K/uL Abs Immat Gran (auto) 0.02 (0.00-0.30) K/uL Imm/Tot Granulo (auto) 0.3 % Sodium 133 L 135 (135-149) mmol/L Potassium 5.8 H 5.7 H (3.6-5.1) mmol/L Chloride 101 101 (96-114) mmol/L Carbon Dioxide 12 L 11 L (20-32) mmol/L Anion Gap 20 H 23 H (7-15) mEq/L BUN 95 H 95 H (7-30) mg/dL Creatinine 8.3 H 8.4 H (0.5-1.5) mg/dL Estimated Creat Clear 3.47 3.43 Estimated GFR 4 4 ml/min Glucose 110 120 H (60-115) mg/dL Uric Acid 10.3 H (2.2-8.4) mg/dL Calcium 9.7 10.0 (8.4-10.6) mg/dL Phosphorus 7.5 H* (2.5-4.5) mg/dL Magnesium 2.5 (1.5-2.6) mg/dL Urine Color Yellow (Yellow) Urine Appearance Cloudy A (Clear) Urine pH 6.5 (5.0-8.5) Ur Specific Randolph 1.025 (1.000-1.030) Urine Protein 3+ A (Negative) Urine Glucose (UA) Negative (Negative) Urine Ketones Trace A (Negative) Urine Blood 3+ A (Negative) Urine Nitrite Negative (Negative) Urine Bilirubin 1+ A (Negative) Urine Urobilinogen 0.2 (0.2-1.0) Ur Leukocyte Esterase 3+ A (Negative) Urine RBC 5-10 A (0-2) Urine WBC 25-50 A (0-5) Ur Squamous Epith Cells Moderate A (None-Few) Amorphous Sediment Few A (None) Urine Bacteria Many A (None) Lab Acknowledgement 11/30/24 Range/Units 22:46 WBC (4.50-11.00) K/uL RBC (4.00-5.20) m/uL Hgb (12.0-16.0) gm/dL Hct (33.0-51.0) % MCV (80-100) fL MCH (26-34) pg MCHC (32-36) gm/dL RDW Coeff of James (11.5-15.5) % Plt Count (140-440) K/uL Neut % (Auto) (42.0-72.0) % Lymph % (Auto) (20-44) % Stephens % (Auto) (0.0-11.0) % Eos % (Auto) (0.0-7.0) % Baso % (Auto) (0.0-3.0) % Neut # (Auto) (1.7-7.0) K/uL Lymph # (Auto) (0.90-2.90) K/uL Stephens # (Auto) (0.00-0.90) K/UL Eos # (Auto) (0.00-0.50) K/uL Baso # (Auto) (0.00-0.30) K/uL Abs Immat Gran (auto) (0.00-0.30) K/uL Imm/Tot Granulo (auto) % Sodium (135-149) mmol/L Potassium (3.6-5.1) mmol/L Chloride (96-114) mmol/L Carbon Dioxide (20-32) mmol/L Anion Gap (7-15) mEq/L BUN (7-30) mg/dL Creatinine (0.5-1.5) mg/dL Estimated Creat Clear Estimated GFR ml/min Glucose (60-115) mg/dL Uric Acid (2.2-8.4) mg/dL Calcium (8.4-10.6) mg/dL Phosphorus (2.5-4.5) mg/dL Magnesium (1.5-2.6) mg/dL Urine Color (Yellow) Urine Appearance (Clear) Urine pH (5.0-8.5) Ur Specific Randolph (1.000-1.030) Urine Protein (Negative) Urine Glucose (UA) (Negative) Urine Ketones (Negative) Urine Blood (Negative) Urine Nitrite (Negative) Urine Bilirubin (Negative) Urine Urobilinogen (0.2-1.0) Ur Leukocyte Esterase (Negative) Urine RBC (0-2) Urine WBC (0-5) Ur Squamous Epith Cells (None-Few) Amorphous Sediment (None) Urine Bacteria (None) Lab Acknowledgement Test Added Imaging Data hip xray: Attestation: I have reviewed the pertinent imaging results. Radiologist's impression: Patient: Rossana Morrow MR#: [id number] : 1935 Acct:[id number] Loc: ED Service Date: 11/30/[address]: Ordering Physician: Luana Montelongo M.D. Date of Service: 11/30/24 Procedure(s): XR hip LT min 2V Accession Number(s): [id number] cc: Luana Montelongo M.D.; Provider,Not a Local~ For Patients: As a result of the Cures Act, medical imaging exams and procedure reports are released immediately into your electronic medical record. You may view this report before your referring provider. If you have questions, please contact your health care provider. INDICATION: Fall, pelvic hip injury TECHNIQUE: Pelvis radiograph, Hip radiograph 3 views left COMPARISON: None FINDINGS: Bone: No acute fractures or aggressive bone lesions are identified. 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 Moderate diffuse osteopenia is present. Joint: Mild bilateral hip osteoarthritis is noted. The visualized sacroiliac joints are unremarkable in appearance. The pubic symphysis is normal in appearance. Soft tissue: Unremarkable. No radiopaque foreign bodies are seen. IMPRESSION: 1. No acute osseous injuries or abnormalities are noted. Dictated by Luis Hutchison MD @ 11/30/2024 6:54:51 PM Dictated by: Luis Hutchison MD @ 11/30/2024 18:54:[address]: Attestation: I have reviewed the pertinent imaging results. Radiologist's impression: Patient: Rossana Morrow MR#: [id number] : 1935 Acct:[id number] Loc: [id number] - MED-1 Service Date: 11/30/[address]: David Ford M.D. Ordering Physician: David Ford M.D. Date of Service: 11/30/24 Procedure(s): CT lumbar spine wo con Accession Number(s): [id number] cc: David Ford M.D.; Provider,Not a Local~ For Patients: As a result of the Cures Act, medical imaging exams and procedure reports are released immediately into your electronic medical record. You may view this report before your referring provider. If you have questions, please contact your health care provider. Indication: Back injury Technique: Noncontrast CT through the lumbar spine with multiplanar reformats Comparison: Lumbar spine MRI performed 04/15/2013 Findings: Alignment: Mild leftward spinal curvature. Mild L2-3 retrolisthesis. Mild L4-5 anterolisthesis in fixation. Mild L5-S1 anterolisthesis. Bones: L3-5 posterior wyatt and screw fixation. Lumbar levels: No acute abnormality appreciated. Moderate to severe degenerative changes appearing greatest at L1-2. Probable high-grade stenosis at L2-3. Soft tissues: Postoperative changes to the soft tissues of the back. Impression: Postoperative changes and multilevel spondylosis and spondylolisthesis with no acute abnormality appreciated. Please note that all CT scans at this facility use dose modulation, iterative reconstruction, and/or weight-based dosing when appropriate to reduce radiation dose to as low as reasonably achievable. Dictated by Jaskaran Zapata MD @ 12/01/2024 12:03:[address] scan - abdomen: Attestation: I have reviewed the pertinent imaging results. Radiologist's impression: Patient: Rossana Morrow MR#: [id number] : 1935 Acct:[id number] Loc: ED Service Date: 11/30/[address]: Ordering Physician: Luana Montelongo M.D. Date of Service: 11/30/24 Procedure(s): CT abdomen pelvis wo con Accession Number(s): [id number] cc: Luana Montelongo M.D.; Provider,Not a Local~ For Patients: As a result of the Cures Act, medical imaging exams and procedure reports are released immediately into your electronic medical record. You may view this report before your referring provider. If you have questions, please contact your health care provider. INDICATION: Back pain after fall, DIYA. TECHNIQUE: CT abdomen and pelvis without contrast. COMPARISON: CT abdomen and pelvis 06/17/2022. FINDINGS: Lower chest: The lung bases are clear. Coronary artery calcification. Liver: Unchanged cyst within the left hepatic lobe. Several too small to characterize subcentimeter hypodense foci scattered throughout the rest of the liver. Normal size and contour. Gallbladder and bile ducts: Status post cholecystectomy. No abnormal biliary ductal dilatation. Pancreas: Unremarkable. No mass or inflammation. Spleen: Normal in size. No masses. Adrenal glands: Normal in size. No nodules. Kidneys: Left renal cyst. Normal in size. No suspicious masses, stones, or hydronephrosis. GI tract: Diverticulosis without pericolonic inflammation. No obstruction. Prior appendectomy. Vasculature: Normal caliber abdominal aorta with mild atherosclerotic calcification. Lymph nodes: No lymphadenopathy. Peritoneum/Abdominal Wall: Tiny fat-containing bilateral inguinal hernias. No free air or significant free fluid. Pelvis: Small calcified uterine fibroids. No pelvic masses. Bones: L3-L5 posterior fusion. Otherwise, unremarkable for age. IMPRESSION: 1. No acute findings within the abdomen and pelvis. No evidence for an acute fracture. 2. Several nonacute findings, as above. Please note that all CT scans at this facility use dose modulation, iterative reconstruction, and/or weight-based dosing when appropriate to reduce radiation dose to as low as reasonably achievable. Dictated by Castro Hunt MD @ 11/30/2024 10:34:39 PM
[2024-11-30] MEDS: IBUPROFEN 200 MG TABLET 400 MG PO (18:23)
--- OUTSIDE RECORDS SUMMARY | 2024-11-30 18:23 | XMS_ITS | Clinical Summary ---
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), initial episode of care 08/23/2012 04/29/2017 Encounters Date Type Department Care Team Description 11/22/2024 Telephone [facility] [address] [place] [address] Luana Bazan PA Questions (antibiotic and test result) 11/18/2024 Telephone [facility] [address] [place] [address] Luana Bazan PA Follow Up 11/18/2024 Orders Only [facility] [address] [place] [address] Luana Bazan PA Follow Up 11/18/2024 Telephone [facility] [address] [place] [address] Martin Raya MD Results (EGD & colonoscopy) 11/18/2024 Orders Only [facility] [address] [place] [address] Martin Raya MD <No scans attached> 11/16/2024 Telephone [facility] [address] [facility] [place] [address] Luana Bazan PA Questions 11/13/2024 Lab Requisition [facility] [phone] Martin Raya MD 11/13/2024 Lab Requisition [facility] [phone] Martin Raya MD 11/12/2024 12:45 PM CDT Office Visit [facility] at [address] [place] [address] Martin Raya MD 11/11/2024 10:30 AM CDT Office Visit [facility] [address] [facility] [address] Luana Bazan PA Preoperative Exam (Dr. Raya[facility]-11/12/24-EGD /Colonoscopy) 11/11/2024 Travel 11/09/2024 Telephone [facility] [address] [facility] [place] [address] Martin Raya MD Follow Up (Phone Call ) 11/09/2024 Telephone [facility] [address] [facility] [place] [address] Martin Raya MD Appointment 11/09/2024 Telephone [facility] [address] [facility] [place] [address] Martin Raya MD 11/09/2024 Orders Only [address] [address] Luana Bazan PA <No scans attached> 11/09/2024 Telephone [facility] [address] [place] [address] Luana Bazan PA Results (CT 11/08) 11/08/2024 3:30 PM CDT Ancillary Procedure [facility] [address] [facility] [address] 11/08/2024 Travel 11/04/2024 2:50 PM CDT Office Visit [facility] [address] [place] [address] Luana Bazan PA Gi Problem (Pt states she can't eat and nothing tastes good and it's causing her stomach to [id number] not been sick but doesn't feel good-is losing weight) 11/04/2024 Travel 11/01/2024 Telephone [facility] [address] [place] [address] Cindy Castillo PA Weak; Dizziness from Last [...] on file 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 Gender Identity Not on file Sexual Orientation Not on file 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 Not on file Not on file [...] Completed 03/30/2018 Medical Devices Implanted Type Area Technology Instructor Device Identifier Shelf Expiration Date Model / Serial / Lot [id number] 1-4mm 60cc Medtronic Fine Canclls Freeze Dried Implanted:Qty: 1 on 12/10/2016 by Evert Govea MD at [facility] Explanted:at [facility] (Quantity not on file) N/A: Spine Medtronic Spine/Ortho 07/01/2021 [id number]# / [id number] / Bobby Lmbr 60x5.5mm Vitality Cvd Titnm - [id number] Implanted:Qty: 2 on 12/10/2016 by Evert Govea MD at [facility] N/A: Spine Kirsty [employer] Spine [id number] 09# / / Set Screw Lmbr 5.5-6mm Vitality Torque - [id number] Implanted:Qty: 3 on 12/10/2016 by Evert Govea MD at [facility] N/A: Spine [employer] Spine 07.60025.0 01# / / Set Screw Lmbr 5.5-6mm Vitality Shear Off - [id number] Implanted:Qty: 3 on 12/10/2016 by Evert Govea MD at [facility] N/A: Spine [employer] Spine 07.36032.0 01# / / Screw Lmbr Post 6.5x45mm Vitality Va - [id number] Implanted:Qty: 6 on 12/10/2016 by Evert Govea MD at [facility] N/A: Spine [employer] Spine [id number] 75# / / Procedures Procedure Name Priority [...] MD LAB BILL ONLY Final Res ult [facility] [address] [place] [address], * PATH TISSUE EXAM (11/12/2024 12:33 PM CDT) Case Report Pathology Report Case: [id number] Authorizing Provider: Martin Raya MD Collected: 11/12/2024 1233 Ordering Location: [facility] Received: 11/13/2024 1056 Pathologist: Queenie Medina DO Specimens: A) - Duodenum Biopsy B) - C) - D) - 11/17/2024 4:02 PM CDT [facility] Final Diagnosis [...] c. Retrieval: Complete 11/17/2024 4:02 PM CDT [facility] at 1602 CDT Clinical Information Ms. Morrow is a 89 y.o. who presents for upper endoscopy examination and colonoscopy examination. Upper endoscopy revealed erythematous mucosa within the stomach and a normal duodenum. Colonoscopy examination revealed multiple polyps. 11/17/2024 4:02 PM CDT [facility] Gross Description A) Received in [...] 11/12/2024 LDW 11/13/2024 11/17/2024 4:02 PM CDT [employer] [facility] LAB[facility]ORY Microscopic Description The final diagnosis is based on microscopic examination of appropriate sections of all specimens. 11/17/2024 4:02 PM CDT [employer] [facility]AL LABORATORY Additional Information Interpreted at [facility] [employer] [facility] Central Laboratory - [address], [place] [address] 11/17/2024 4:02 PM CDT [facility] [employer] [facility] ENTRAL LABORATORY Other (Duodenum Biopsy) 11/12/2024 12:33 PM CDT 11/13/2024 10:56 AM CDT Specimen (specimen) 11/12/2024 12:33 PM CDT 11/13/2024 10:56 AM CDT Specimen (specimen) 11/12/2024 12:33 PM CDT 11/13/2024 10:56 AM CDT Specimen (specimen) 11/12/2024 12:56 PM CDT 11/13/2024 12:12 PM CDT us Martin Raya MD PATHOLOGY/CYTOLOGY Final Result [facility] [address] [place] [address], [place] * ESOPHAGOGASTRODUODENOSCOPY (11/12/2024 12:00 AM CDT) [...] PEÑA HEMATOLOGY Final Resu lt [facility] [address] [place] [address], [place] [phone] [facility] [address] [place] [address] * TSH (11/04/2024 3:37 PM CDT) TSH 1.40 0.40 - 4.50 mIU/L [facility] Blood BLOOD SPECIMEN / Unknown 11/04/2024 3:37 PM CDT 11/04/2024 3:38 PM CDT Narrative [facility] - 11/05/2024 5:44 AM CDT FASTING:NO FASTING: NO Luana PEÑA CHEMISTRY Final Resu lt Performing Organization Address [facility]/ZIP Co de Phone Number [facility] [address] [place] [address], [place] [phone] [facility] [address] [place] [address] * C-REACTIVE PROTEIN (11/04/2024 3:37 PM CDT) C-REACTIVE PROTEIN <3.0 <8.0 mg/L [facility] Blood BLOOD SPECIMEN / Unknown 11/04/2024 3:37 PM CDT 11/04/2024 3:38 PM CDT Narrative [facility] - 11/05/2024 10:57 AM CDT FASTING:NO FASTING: NO Luana PEÑA CHEMISTRY Final Resu lt Performing Organization Address City/[facility]/ZIP Co de Phone Number [facility] [address] [place] [address], [place] [phone] [facility] [address] [place] [address] * CBC AND DIFFERENTIAL (11/04/2024 3:37 PM CDT) [facility] WHITE BLOOD CELL COUNT 5.8 3.8 - [...] COUNT 245 140 - 400 Thousand/u L [facility] MPV 11.0 7.5 - [...] HEMATOLOGY Final Resu lt Performing Organization Address [facility]/ZIP Co de Phone Number [employer] [facility] [address] [place] [address], [place] [phone] [facility] [address] [place] [address] * LIPASE (11/04/2024 3:37 PM CDT) Pathologist [facility] LIPASE 47 7 - 60 U/L [facility] Blood BLOOD SPECIMEN / Unknown 11/04/2024 3:37 PM CDT 11/04/2024 3:38 PM CDT Narrative [facility] - 11/05/2024 4:59 AM CDT FASTING:NO FASTING: NO Luana PEÑA CHEMISTRY Final Resu lt Performing Organization Address [facility]/ZIP Co de Phone Number [employer] [facility] [address] [place] [address], [place] [phone] [facility] [address] [place] [address] * (ABNORMAL) COMP METABOLIC PANEL (11/04/2024 3:37 PM CDT) GLUCOSE 104 65 - 139 mg/dL [facility] Comment: Non-fasting reference interval UREA [...] PEÑA CHEMISTRY Final Resu lt [facility] [address] [place] [address], [facility] [address] [place] [address] * SCAN-BONE DENSITOMETRY DEXA (03/30/2018 12:00 AM CDT) Anatomical Region Laterality Modality Other us Scanner OTHER Final Result from Last 3 Months or Most Recently Relevant to Health Maintenance Insurance MEDICARE PART A HB ONLY MEDICARE PART B HB ONLY [employer] BLUE MR PB ONLY [employer] BLUE HB ONLY Advance Directives * Full Code (Latest Code Status on File) Date Activated Date Inactivated Comments 12/10/2016 12:39 PM 12/13/2016 1:28 PM * Full Code Date Activated Date Inactivated Comments 12/10/2016 5:44 AM 12/10/2016 12:28 PM * Full Code Date Activated Date Inactivated Comments 08/23/2012 10:49 PM 08/26/2012 2:20 PM Care Teams Wood Stainer Relationship Specialty Start Date End Date Luana Bazan PA [address] [place] [address] PCP - General Physician Maintenance Supervisor 2Nd Shift 02/17/24
[2024-11-30 19:42] LABS: Basophils Absolute Auto 0.04 K/uL (0.00-0.30); Basophils Percent Auto 0.5 % (0.0-3.0); Eosinophils Absolute Auto 0.04 K/uL (0.00-0.50); Eosinophils Percent Auto 0.5 % (0.0-7.0); Hematocrit 33.6 % (33.0-51.0); Hemoglobin* 11.1 gm/dL (12.0-16.0); Immature Granulocytes Abs Auto 0.02 K/uL (0.00-0.30); Immature Granulocytes Pct Auto 0.3 %; Lymphocytes Percent Auto 14.8 % (20-44); Mean Corpuscular HGB Conc 33 gm/dL (32-36); Mean Corpuscular Hemoglobin 30 pg (26-34); Mean Corpuscular Volume 91 fL (80-100); Monocytes Percent Auto 10.9 % (0.0-11.0); Platelet Count* 201 K/uL (140-440); RDW Coefficient of Variation % 13.6 % (11.5-15.5); White Blood Count* 7.77 K/uL (4.50-11.00)
[2024-11-30 19:45] LABS: Slide Review Reflex No
[2024-11-30 19:59] LABS: Chloride* 101 mmol/L (96-114); Potassium* 5.8 mmol/L (3.6-5.1); Sodium* 133 mmol/L (135-149)
[2024-11-30 20:01] LABS: Blood Urea Nitrogen* 95 mg/dL (7-30); Creatinine* 8.3 mg/dL (0.5-1.5); Est. Creatinine Clearance* 3.47; Estimated Glomerular Filt Rate 4 ml/min
[2024-11-30 20:02] LABS: Anion Gap 20 mEq/L (7-15); Calcium* 9.7 mg/dL (8.4-10.6); Carbon Dioxide* 12 mmol/L (20-32); Glucose* 110 mg/dL (60-115)
[2024-11-30 21:10] LABS: Appearance Urine Cloudy (Clear); Bilirubin Urine 1+ (Negative); Blood Urine 3+ (Negative); Glucose Urine Negative (Negative); Ketones Urine Trace (Negative); Leukocyte Esterase Urine 3+ (Negative); Nitrite Urine Negative (Negative); Protein Urine 3+ (Negative); Specific Gravity Urine 1.025 (1.000-1.030); Urobilinogen Urine 0.2 (0.2-1.0); pH Urine 6.5 (5.0-8.5)
[2024-11-30 21:11] VITALS: BP 108/59; PULSE 61; RESP 16; O2SAT 99
[2024-11-30 21:15] LABS: Color Urine Yellow (Yellow)
[2024-11-30 21:27] LABS: Bacteria Urine Many; Squamous Epithelial Cell Urine Moderate (None-Few); WBC Urine 25-50 (0-5)
[2024-11-30 21:28] LABS: Amorphous Sediment Urine Few
--- NOTE | 2024-11-30 21:34 | CRLHL7_ITS ---
For Patients: As a result of the Century Cures Act, medical imaging exams and procedure reports are released immediately into your electronic medical record. You may view this report before your referring provider. If you have questions, please contact your health care provider. INDICATION: Back pain after fall, DIYA. TECHNIQUE: CT abdomen and pelvis without contrast. COMPARISON: CT abdomen and pelvis 06/17/2022. FINDINGS: Lower chest: The lung bases are clear. Coronary artery calcification. Liver: Unchanged cyst within the left hepatic lobe. Several too small to characterize subcentimeter hypodense foci scattered throughout the rest of the liver. Normal size and contour. Gallbladder and bile ducts: Status post cholecystectomy. No abnormal biliary ductal dilatation. Pancreas: Unremarkable. No mass or inflammation. Spleen: Normal in size. No masses. Adrenal glands: Normal in size. No nodules. Kidneys: Left renal cyst. Normal in size. No suspicious masses, stones, or hydronephrosis. GI tract: Diverticulosis without pericolonic inflammation. No obstruction. Prior appendectomy. Vasculature: Normal caliber abdominal aorta with mild atherosclerotic calcification. Lymph nodes: No lymphadenopathy. Peritoneum/Abdominal Wall: Tiny fat-containing bilateral inguinal hernias. No free air or significant free fluid. Pelvis: Small calcified uterine fibroids. No pelvic masses. Bones: L3-L5 posterior fusion. Otherwise, unremarkable for age. IMPRESSION: 1. No acute findings within the abdomen and pelvis. No evidence for an acute fracture. 2. Several nonacute findings, as above. Please note that all CT scans at this facility use dose modulation, iterative reconstruction, and/or weight-based dosing when appropriate to reduce radiation dose to as low as reasonably achievable. Dictated by Castro Hunt MD @ 11/30/2024 10:34:39 PM (Electronically Signed)
[2024-11-30 21:36] LABS: Chloride* 101 mmol/L (96-114); Potassium* 5.7 mmol/L (3.6-5.1); Sodium* 135 mmol/L (135-149)
[2024-11-30 21:39] LABS: Anion Gap 23 mEq/L (7-15); Blood Urea Nitrogen* 95 mg/dL (7-30); Carbon Dioxide* 11 mmol/L (20-32); Creatinine* 8.4 mg/dL (0.5-1.5); Est. Creatinine Clearance* 3.43; Estimated Glomerular Filt Rate 4 ml/min; Glucose* 120 mg/dL (60-115)
[2024-11-30] MEDS: HYDROmorphone 0.5 mg/0.5 ml inj 0.25 MG IVP (23:02)
[2024-11-30 23:07] VITALS: BP 117/53; PULSE 65; RESP 16; O2SAT 98
[2024-11-30 23:29] LABS: Magnesium* 2.5 mg/dL (1.5-2.6)
[2024-11-30 23:30] VITALS: BP 113/54; PULSE 68; TEMP 36.2; O2SAT 98; BMI 31.0
[2024-11-30 23:30] LABS: Phosphorus* 7.5 mg/dL (2.5-4.5)
--- NOTE | 2024-11-30 23:44 | CRLHL7_ITS ---
For Patients: As a result of the Century Cures Act, medical imaging exams and procedure reports are released immediately into your electronic medical record. You may view this report before your referring provider. If you have questions, please contact your health care provider. Indication: Back injury Technique: Noncontrast CT through the lumbar spine with multiplanar reformats Comparison: Lumbar spine MRI performed 04/15/2013 Findings: Alignment: Mild leftward spinal curvature. Mild L2-3 retrolisthesis. Mild L4-5 anterolisthesis in fixation. Mild L5-S1 anterolisthesis. Bones: L3-5 posterior wyatt and screw fixation. Lumbar levels: No acute abnormality appreciated. Moderate to severe degenerative changes appearing greatest at L1-2. Probable high-grade stenosis at L2-3. Soft tissues: Postoperative changes to the soft tissues of the back. Impression: Postoperative changes and multilevel spondylosis and spondylolisthesis with no acute abnormality appreciated. Please note that all CT scans at this facility use dose modulation, iterative reconstruction, and/or weight-based dosing when appropriate to reduce radiation dose to as low as reasonably achievable. Dictated by Jaskaran Zapata MD @ 12/01/2024 12:03:10 AM (Electronically Signed)
[2024-12-01] VITALS (9 sets, daily range): BP systolic 79–103; BP diastolic 37–61; PULSE 63–80; RESP 16–20; TEMP 36.2–36.8; O2SAT 94–99
--- NOTE | 2024-12-01 00:15 | P.IMHP_ITS ---
Assessment and Plan Assessment and plan (1) Acute kidney injury: Problem comment: Patient currently declining consideration for dialysis. Will manage with IV fluids, sodium bicarbonate, furosemide if needed, calcium acetate, stop lisinopril and ibuprofen. Monitor for urine output. Status: Acute (2) Hyperkalemia: Problem comment: IV fluids and furosemide if needed Status: Acute (3) Hyperphosphatemia: Problem comment: Fluids, Calcium acetate and monitor Status: Acute (4) Metabolic acidosis: Problem comment: Sodium bicarb Status: Acute (5) Malnutrition: Status: Acute (6) Weight loss, non-intentional: Status: Acute (7) Poor appetite: Problem comment: Stop clarithromycin and monitor Status: Acute (8) Bad taste in mouth: Problem comment: Stop clarithromycin and monitor Status: Acute (9) Acute low back pain: Problem comment: PT evaluate and treat Status: Acute (10) Chronic back pain: Status: Acute Plan 89-year-old female admitted to the hospital with acute kidney injury and associated fluid and electrolyte disorders. If she does not improve with medical management revisit consideration of dialysis versus hospice. It appears that her acute kidney injury is related to combination of factors including poor oral intake and use of ibuprofen. Will manage with IV fluids and correct electrolytes and other metabolic disturbances. Will need to address the poor appetite and malnutrition as well as this is likely contributing. PT and OT to evaluate functional status. Total Time Spent Total Time Spent: Total time spent today is 90 minutes in coordination of care, reviewing outside records, discussing with patient and son and other providers ongoing management of acute kidney injury, loss of appetite and weight loss, back and hip pain and injury. Hospitalist- H&P: HPI History of Present Illness Date Seen: 12/01/24 Chief complaint: fall Narrative: Rossana Morrow is a 89 year old female admitted through the emergency room after a fall at home. She had an accidental fall at home landing on her left hip. She was having some back pain and some left hip pain and came to the emergency department. Evaluation did not show any acute fracture or serious injury of her back or hip. Her family was reluctant to take her home because she had been eating poorly and losing weight. Further evaluation showed that she had acute kidney injury. No previous history of significant kidney problems. She has been making urine. She has not had a fever or dysuria. She acknowledges that she has been eating poorly. She has been losing weight and she reports that food tastes bad. This is been going on for a few months. In reviewing her chart from [facility] I see that her weight was 87.8 kg in January of 2024, 79.4 kg on 11/04/2024 and 77.1 kg on November 11 2024. She is now down to 68 kg in our emergency department. In summary she lost about 8 kg from January 2025 to November 04 and has now lost about 11 kg since November 04. She had evaluation in the clinic for this in October including multiple normal laboratory studies and an unremarkable CT abdomen and pelvis. She underwent EGD which was also unremarkable except for the finding of positive H pylori. On the 18 of November she was prescribed clarithromycin, amoxicillin and omeprazole for treatment of H pylori. She has not been taking the medications consistently because she finds the big pills hard to swallow. To improve her nutrition she has been taking Ensure at home. She finds this causes diarrhea and so she takes only small quantities of this. She reports some nausea and vomiting and occasional abdominal pain though abdominal pain is not bothering her today. She has a longstanding history of back pain. She has a remote history of a lumbar laminectomy which helped her back. She has moderate to severe lumbar spinal stenosis. She also reports some pain going into the your lateral left h ip which may be coming from her spine. Review of Systems Narrative: Patient has multiple health concerns but predominantly she is concerned about the loss of appetite, her poor taste, her weight loss, her back and left hip pain and neuropathy. [facility] Medical History (Updated 12/01/24 @ 00:40 by David Ford MD) Acute kidney injury ?N17.9 - Acute kidney failure, unspecified (ICD-10) Varicose veins of both lower extremities with pain (02/17/24) ?I83.813 - Varicose veins of bilateral lower extremities with pain (ICD-10) Stage 3b chronic kidney disease (11/05/24) ?N18.32 - Chronic kidney disease, stage 3b (ICD-10) Spinal stenosis of lumbar region (04/16/13) ?M48.061 - Spinal stenosis, lumbar region without neurogenic claudication (ICD-10) Prediabetes (02/17/24) ?R73.03 - Prediabetes (ICD-10) Malignant neoplasm of breast ?C50.919 - Malignant neoplasm of unspecified site of unspecified female breast (ICD-10) History of left breast cancer (05/19/14) ?Z85.3 - Personal history of malignant neoplasm of breast (ICD-10) Essential hypertension (02/17/24) ?I10 - Essential (primary) hypertension (ICD-10) Chronic back pain (04/16/13) ?M54.9 - Dorsalgia, unspecified (ICD-10) ?G89.29 - Other chronic pain (ICD-10) Acute shoulder pain ?M25.519 - Pain in unspecified shoulder (ICD-10) Acute low back pain (04/16/13) ?M54.50 - Low back pain, unspecified (ICD-10) Tendinitis involving right hip abductors (10/02/22) ?M76.891 - Other specified enthesopathies of right lower limb, excluding foot (ICD-10) Spinal stenosis, lumbar region, without neurogenic claudication (12/10/16) ?M48.061 - Spinal stenosis, lumbar region without neurogenic claudication (ICD-10) Osteoarthritis of right hip (10/02/22) ?M16.11 - Unilateral primary osteoarthritis, right hip (ICD-10) NSTEMI (non-ST elevation myocardial infarction) (02/16/24) ?I21.4 - Non-ST elevation (NSTEMI) myocardial infarction (ICD-10) Hypertension (07/03/10) ?I10 - Essential (primary) hypertension (ICD-10) Hyperlipidemia (04/19/15) ?E78.5 - Hyperlipidemia, unspecified (ICD-10) Edema, peripheral (12/19/22) ?R60.0 - Localized edema (ICD-10) Degeneration of cervical intervertebral disc (02/20/09) ?M50.30 - Other cervical disc degeneration, unspecified cervical region (ICD- 10) Bilateral lower extremity edema (02/17/24) ?R60.0 - Localized edema (ICD-10) Malnutrition ?E46 - Unspecified protein-calorie malnutrition (ICD-10) Weight loss, non-intentional ?R63.4 - Abnormal weight loss (ICD-10) Poor appetite ?R63.0 - Anorexia (ICD-10) Bad taste in mouth ?R43.8 - Other disturbances of smell and taste (ICD-10) Non-STEMI (non-ST elevated myocardial infarction) ?I21.4 - Non-ST elevation (NSTEMI) myocardial infarction (ICD-10) Bilateral lower extremity edema ?R60.0 - Localized edema (ICD-10) Degeneration of cervical intervertebral disc ?M50.30 - Other cervical disc degeneration, unspecified cervical region (ICD- 10) Hypertension ?I10 - Essential (primary) hypertension (ICD-10) Hyperlipidemia ?E78.5 - Hyperlipidemia, unspecified (ICD-10) Spinal stenosis of lumbar region without neurogenic claudication ?M48.061 - Spinal stenosis, lumbar region without neurogenic claudication (ICD-10) Surgical History H/O bilateral cataract extraction (10/08/10) ?Z98.41 - Cataract extraction status, right eye (ICD-10) ?Z98.42 - Cataract extraction status, left eye (ICD-10) 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Z98.890 - Other specified postprocedural states (ICD-10) Family History (Updated 12/01/24 @ 00:29 by David Ford MD) Sister Breast cancer Diabetes Daughter Breast cancer Mother Diabetes Other Heart disease Social History (Updated 12/01/24 @ 00:31 by David Ford MD) Narrative: , lives in apartment in [place] by herself. Family nearby for support. She does not smoke. She rarely drinks alcohol. Code status is DNR. Her son Karla and granddaughter Bianca would be healthcare power of trial attorney Smoking Status: Never smoker Do you use any of these nicotine containing products: None Second hand tobacco smoke exposure: No How often do you have a drink containing alcohol: never How often do you have six or more drinks on one occasion: Never AUDIT-C Alcohol total score: 0 Non-prescribed substance use: denies use Meds Home Medications and Allergies Home Medications ?Medication ?Instructions ?Recorded ?Confirmed ?Type allopurinol 100 mg tablet 300 mg PO QDAY 06/24/22 12/01/24 History amlodipine 5 mg tablet 5 mg PO QDAY 06/24/22 12/01/24 History hydrochlorothiazide 25 mg tablet 25 mg PO QDAY 06/24/22 12/01/24 History metoprolol succinate 100 mg 100 mg PO DAILY 06/24/22 12/01/24 History tablet,extended release 24 hr pravastatin 40 mg tablet 40 mg PO .qod 06/24/22 12/01/24 History spironolactone 25 mg tablet 25 mg PO QDAY 06/24/22 12/01/24 History lisinopril 2.5 mg tablet 2.5 mg PO QDAY 06/25/22 12/01/24 History amoxicillin 500 mg capsule mg 12/01/24 History aspirin 81 mg tablet,delayed mg 12/01/24 History release clarithromycin 500 mg tablet mg 12/01/24 History ibuprofen 200 mg tablet 400 mg PO TID PRN 12/01/24 12/01/24 History omeprazole 40 mg capsule,delayed mg 12/01/24 History release Allergies Allergy/AdvReac Type Severity Reaction Status Date / Time morphine Allergy Mild Itching Verified 10/14/22 14:23 Cephalexin Allergy Mild Rash Uncoded 09/30/22 07:47 Exam Narrative: Exam Narrative: She is alert and gives her own history. She is quite hard of hearing. Head is without apparent trauma. Eyes normal. Oropharynx with dry mucous membranes. Neck is supple without mass or adenopathy. Respirations are clear to auscu ltation without wheezing rales or rhonchi. Cardiovascular: S1, S2, regular rate and rhythm. Abdomen: Bowel sounds active. Abdomen is soft with mild diffuse tenderness. No mass. No peritonitis. She reports no pain except associated with palpation. External genitalia normal. Extremities with diminished but present pedal pulses, especially posterior tibial pulses are present bilaterally. She has no edema. Chronic venous stasis skin changes are present. Palpation over her back is without significant tenderness she has mild tenderness on the right flank just above the right posterior iliac crest. No sign of trauma in this area. She reports pain over her left greater trochanter but there is no external signs of trauma. She tolerates hip and knee flexion and extension and internal and external rotation without significant pain on either side. Const: Vital Signs, click to edit/add: Vital Signs - 24 hr 11/30/24 17:38 11/30/24 21:11 11/30/24 23:07 Temperature 97.5 F L Pulse Rate 61 65 Pulse Rate [Pulse Oximeter] 63 Respiratory Rate 18 16 16 Blood Pressure 108/59 L 117/53 L Blood Pressure [Ri ght Upper Arm] 102/50 L Pulse Oximetry 91 99 98 Oxygen Delivery Me thod Room Air Room Air Room Air Documenting provider has reviewed patient's vital signs: yes Hospitalist - H&P: Result Labs Labs: Short CBC 11/30/24 Range/Units 19:36 WBC 7.77 (4.50-11.00) K/uL Hgb 11.1 L (12.0-16.0) gm/dL Hct 33.6 (33.0-51.0) % Plt Count 201 (140-440) K/uL BMP 11/30/24 11/30/24 19:36 21:18 Sodium 133 L 135 Potassium 5.8 H 5.7 H Chloride 101 101 Carbon Dioxide 12 L 11 L BUN 95 H 95 H Creatinine 8.3 H 8.4 H Glucose 110 120 H Calcium 9.7 10.0 Urine 11/30/24 Range/Units 20:35 Urine Color Yellow (Yellow) Urine Appearance Cloudy A (Clear) Urine pH 6.5 (5.0-8.5) Ur Specific [place] 1.025 (1.000-1.030) Urine Protein 3+ A (Negative) Urine Glucose (UA) Negative (Negative) Imaging Hip x-ray: Radiologist's impression: INDICATION: Fall, pelvic hip injury TECHNIQUE: Pelvis radiograph, Hip radiograph 3 views left COMPARISON: None FINDINGS: Bone: No acute fractures or aggressive bone lesions are identified. 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 Moderate diffuse osteopenia is present. Joint: Mild bilateral hip osteoarthritis is noted. The visualized sacroiliac joints are unremarkable in appearance. The pubic symphysis is normal in appearance. Soft tissue: Unremarkable. No radiopaque foreign bodies are seen. IMPRESSION: 1. No acute osseous injuries or abnormalities are noted. CT scan - abdomen: Radiologist's impression: INDICATION: Back pain after fall, DIYA. TECHNIQUE: CT abdomen and pelvis without contrast. COMPARISON: CT abdomen and pelvis 06/17/2022. FINDINGS: Lower chest: The lung bases are clear. Coronary artery calcification. Liver: Unchanged cyst within the left hepatic lobe. Several too small to characterize subcentimeter hypodense foci scattered throughout the rest of the liver. Normal size and contour. Gallbladder and bile ducts: Status post cholecystectomy. No abnormal biliary ductal dilatation. Pancreas: Unremarkable. No mass or inflammation. Spleen: Normal in size. No masses. Adrenal glands: Normal in size. No nodules. Kidneys: Left renal cyst. Normal in size. No suspicious masses, stones, or hydronephrosis. GI tract: Diverticulosis without pericolonic inflammation. No obstruction. Prior appendectomy. Vasculature: Normal caliber abdominal aorta with mild atherosclerotic calcification. Lymph nodes: No lymphadenopathy. Peritoneum/Abdominal Wall: Tiny fat-containing bilateral inguinal hernias. No free air or significant free fluid. Pelvis: Small calcified uterine fibroids. No pelvic masses. Bones: L3-L5 posterior fusion. Otherwise, unremarkable for age. IMPRESSION: 1. No acute findings within the abdomen and pelvis. No evidence for an acute fracture. 2. Several nonacute findings, as above. Lumbar spine CT: Radiologist's impression: Indication: Back injury Technique: Noncontrast CT through the lumbar spine with multiplanar reformats Comparison: Lumbar spine MRI performed 04/15/2013 Findings: Alignment: Mild leftward spinal curvature. Mild L2-3 retrolisthesis. Mild L4-5 anterolisthesis in fixation. Mild L5-S1 anterolisthesis. Bones: L3-5 posterior wyatt and screw fixation. Lumbar levels: No acute abnormality appreciated. Moderate to severe degenerative changes appearing greatest at L1-2. Probable high-grade stenosis at L2-3. Soft tissues: Postoperative changes to the soft tissues of the back. Impression: Postoperative changes and multilevel spondylosis and spondylolisthesis with no acute abnormality appreciated.
[2024-12-01 00:34] LABS: Uric Acid* 10.3 mg/dL (2.2-8.4)
[2024-12-01] MEDS: PANTOPRAZOLE SODIUM 40 MG INJ IVP (01:34)
[2024-12-01] MEDS: cefTRIAXone 1 GM in 0.9 % SODIUM CHLORIDE Mini-bag 100 ML IVPB (01:34)
[2024-12-01] MEDS: LACTATED RINGERS 1000 ML 1,000 ML 125 ML IV ×3 (05:48→23:31)
[2024-12-01] MEDS: OMEPRAZOLE 20 MG CAPSULE DR PO ×2 (06:22→21:50)
[2024-12-01 06:33] LABS: Phosphorus* 6.9 mg/dL (2.5-4.5)
[2024-12-01 06:46] LABS: Chloride* 98 mmol/L (96-114); Potassium* 5.4 mmol/L (3.6-5.1); Sodium* 131 mmol/L (135-149)
--- NOTE | 2024-12-01 06:47 | PC.NURSE ---
Pleasant and cooperative. Lower back & hip pain tolerable by end of shift, aqua K pad placed. VSS. Walker patent and draining, 100mL cloudy urine output. Completed 1 L Sodium Bicarb 5% Dextrose, maintenance LR running at 125. No c/o nausea, tolerating PO fluids.
[2024-12-01 06:49] LABS: Anion Gap 16 mEq/L (7-15); Blood Urea Nitrogen* 96 mg/dL (7-30); Calcium* 8.6 mg/dL (8.4-10.6); Carbon Dioxide* 17 mmol/L (20-32); Creatinine* 7.9 mg/dL (0.5-1.5); Est. Creatinine Clearance* 3.64; Estimated Glomerular Filt Rate 5 ml/min; Glucose* 217 mg/dL (60-115)
[2024-12-01] MEDS: SODIUM BICARBONATE 650 MG TABLET PO ×2 (08:32→18:55)
[2024-12-01] MEDS: CALCIUM ACETATE 667 MG CAPSULE PO ×2 (08:36→18:55)
--- NOTE | 2024-12-01 09:32 | NUTR.NU ---
RDN with MD consult for nutritional consult. Patient admitted s/p fall at home, found to have DIYA and malnutrition. Current weight 169lb; height 5ft 1in; BMI 31.9 kg/m2. Limited weight history as no weights in patient's chart since 2022. Unable to assess weight loss at this time. Current diet is Regular, no intakes yet since admit. Per MD, plan is to discuss goals of care with family and patient today. Not appropriate to visit with patient today due to unknown goals of care. RDN will continue to monitor and follow-up if appropriate at later date.
[2024-12-01] MEDS: ACETAMINOPHEN 325 MG TABLET 650 MG PO ×3 (10:22→21:49)
[2024-12-01] MEDS: LIDOCAINE 5% PATCH 1 PATCH TRANSDERMA (10:22)
--- NOTE | 2024-12-01 11:48 | P.IMPN_ITS ---
Assessment and Plan Assessment and plan (1) Acute kidney injury: Problem comment: - with associated hyperkalemia and hyperphosphatemia - presumably combination of prerenal source (poor po intake, weight loss) and iatrogenic (Ibuprofen for back pain) - Declines consideration for dialysis - treatment: IV fluids, sodium bicarbonate, furosemide if needed/tolerated, calcium acetate - holding nephrotoxins - reviewed findings/prognosis with family; no interest in aggressive management, not ready for comfort-focused measures but understands that she's hospice appropriate - current plan: home when medically appropriate (with HH), close f/u with PCP to evaluate renal function and plan Status: Acute (2) Metabolic acidosis: Problem comment: - sodium bicarbonate Status: Acute (3) Weight loss, non-intentional: Problem comment: - 79kg in clinic 11/04/24, currently 76kg (had estimated weight lower in ER, but objectively 74-76kg) - likely combination of H Pylori gastritis, iatrogenic from antibiotics - monitor for improvement after discontinuing Clarithromycin - Nutritional consult Status: Acute (4) Acute low back pain: Problem comment: - acute on chronic - low dose APAP, Lidocaine patch, PT Status: Acute (5) Chronic back pain: Status: Acute (6) H. pylori duodenitis: Problem comment: - noted per pathology from 11/12 EGD, did not complete course of Clarithromycin/Amoxicillin 2/2 poor taste, nausea, pill burden Status: Acute Plan - per above - daughter, granddaughter, great granddaughter updated at bedside, questions answered Subjective Date Seen: 12/01/24 Interval history: Rossana was admitted to the hospital last night for acute kidney injury in the setting of weight loss, weakness, and acute on chronic back/hip pain after a fall at home. Imaging in ER revealed no abnormalities on CT of C/A/P, no acute fractures. Had been having poor appetite and weight loss since earlier this year, + H Pylori on EGD biopsies 2 weeks ago (wasn't able to complete full course of Clarithromycin 2/2 pill burden and nausea), reassuring colonoscopy. Admission creatinine of 8.3 with K of 5.8, phosphorous 7.5. She declined transfer to tertiary care center for HD consideration. This morning, creatinine is 7.9 with K of 5.4 and phosphorous of 6.9. Glucose 217 (received Glucose in her sodium bicarb overnight, previous outpatient A1C 6.1). No growth on urine culture. We are holding nephrotoxins, treating with IVFs and Phoslo. Walker placed on admission and draining. Also received Sodium Bicarbonate on admission for metabolic acidosis. This morning, patient is seen with family at bedside. She continues to decline transfer to tertiary care center and has no desire to pursue hemodialysis. She understands the severity of her acute kidney injury. She was able to walk with therapies this morning, continues to have some back and hip pain. Anticipates going back to her apartment when medically appropriate for discharge, amenable to the addition of home health. Exam Narrative: Exam Narrative: GEN: Alert and oriented, laying comfortably in bed and nontoxic HEENT: EOMIs bilaterally, no scleral icterus CV: RRR, No concerning murmurs R: LCTA bilaterally without concerning wheezing Ext: wwp, no concerning edema Skin: Scattered bruising on extremities, no concerning rashes Neuro: No focal deficits Psych: Appropriate Const: Vital Signs, click to edit/add: Vital Signs - 24 hr 11/30/24 17:38 11/30/24 21:11 11/30/24 23:07 Temperature 97.5 F L Pulse Rate 61 65 Pulse Rate [Pulse Oximeter] 63 Respiratory Rate 18 16 16 Blood Pressure 108/59 L 117/53 L Blood Pressure [Ri ght Arm] Blood Pressure [Ri ght Upper Arm] 102/50 L Pulse Oximetry 91 99 98 [facility] Room Air Room Air 11/30/24 23:30 12/01/24 00:38 12/01/24 01:43 Temperature 97.1 F L Pulse Rate 65 Pulse Rate [Pulse Oximeter] 68 Respiratory Rate 20 Blood Pressure Blood Pressure [Ri ght Arm] 113/54 L Blood Pressure [Ri ght Upper Arm] Pulse Oximetry 98 [facility]xygen Delivery [facility] Air Room Air 12/01/24 04:00 12/01/24 08:30 12/01/24 11:00 Temperature 97.1 F L 97.8 F 98.0 F Pulse Rate Pulse Rate [Pulse Oximeter] 63 68 74 Respiratory Rate 16 18 18 Blood Pressure Blood Pressure [Ri ght Arm] 103/60 100/46 L 79/54 L Blood Pressure [Ri ght Upper Arm] Pulse Oximetry 95 98 99 Oxygen Delivery [facility] Air Room Air Room Air 12/01/24 11:46 Temperature Pulse Rate Pulse Rate [Pulse Oximeter] 78 Respiratory Rate 16 Blood Pressure Blood Pressure [Ri ght Arm] 81/37 L Blood Pressure [Ri t Upper Arm] Pulse Oximetry Oxygen Delivery Me thod Room Air Labs Labs: Laboratory Results - last 24 hr 11/30/24 11/30/24 11/30/24 19:36 20:35 21:18 WBC 7.77 RBC 3.70 L Hgb 11.1 L Hct 33.6 MCV 91 MCH 30 MCHC 33 RDW Coeff of James 13.6 Plt Count 201 Neut % (Auto) 73.0 H Lymph % (Auto) 14.8 L [place] % (Auto) 10.9 Eos % (Auto) 0.5 Baso % (Auto) 0.5 Neut # (Auto) 5.70 Lymph # (Auto) 1.10 [place] # (Auto) 0.80 Eos # (Auto) 0.04 Baso # (Auto) 0.04 Abs Immat Gran (auto) 0.02 Imm/Tot Granulo (auto) 0.3 Sodium 133 L 135 Potassium 5.8 H 5.7 H Chloride 101 101 Carbon Dioxide 12 L 11 L Anion Gap 20 H 23 H BUN 95 H 95 H Creatinine 8.3 H 8.4 H Estimated Creat Clear 3.47 3.43 Estimated GFR 4 4 Glucose 110 120 H Uric Acid 10.3 H Calcium 9.7 10.0 Phosphorus 7.5 H* Magnesium 2.5 Urine Color Yellow Urine Appearance Cloudy A Urine pH 6.5 Ur Specific [place] 1.025 Urine Protein 3+ A Urine Glucose (UA) Negative Urine Ketones Trace A Urine Blood 3+ A Urine Nitrite Negative Urine Bilirubin 1+ A Urine Urobilinogen 0.2 Ur Leukocyte Esterase 3+ A Urine RBC 5-10 A Urine WBC 25-50 A Ur Squamous Epith Cells Moderate A Amorphous Sediment Few A Urine Bacteria Many A Lab Acknowledgement 11/30/24 12/01/24 12/01/24 22:46 00:04 05:33 WBC RBC Hgb Hct MCV MCH MCHC RDW Coeff of James Plt Count Neut % (Auto) Lymph % (Auto) [place] % (Auto) Eos % (Auto) Baso % (Auto) Neut # (Auto) Lymph # (Auto) [place] # (Auto) Eos # (Auto) Baso # (Auto) Abs Immat Gran (auto) Imm/Tot Granulo (auto) Sodium 131 L Potassium 5.4 H Chloride 98 Carbon Dioxide 17 L Anion Gap 16 H BUN 96 H Creatinine 7.9 H Estimated Creat Clear 3.64 Estimated GFR 5 Glucose 217 H Uric Acid Calcium 8.6 Phosphorus 6.9 H* Magnesium Urine Color Urine Appearance Urine pH Ur Specific [place] Urine Protein Urine Glucose (UA) Urine Ketones Urine Blood Urine Nitrite Urine Bilirubin Urine Urobilinogen Ur Leukocyte Esterase Urine RBC Urine WBC Ur Squamous Epith Cells Amorphous Sediment Urine Bacteria Lab Acknowledgement Test Added Test Added 12/01/24 06:40 WBC RBC Hgb Hct MCV MCH MCHC RDW Coeff of James Plt Count Neut % (Auto) Lymph % (Auto) [place] % (Auto) Eos % (Auto) Baso % (Auto) Neut # (Auto) Lymph # (Auto) [place] # (Auto) Eos # (Auto) Baso # (Auto) Abs Immat Gran (auto) Imm/Tot Granulo (auto) Sodium Potassium Chloride Carbon Dioxide Anion Gap BUN Creatinine Estimated Creat Clear Estimated GFR Glucose Uric Acid Calcium Phosphorus Magnesium Urine Color Urine Appearance Urine pH Ur Specific [place] Urine Protein Urine Glucose (UA) Urine Ketones Urine Blood Urine Nitrite Urine Bilirubin Urine Urobilinogen Ur Leukocyte Esterase Urine RBC Urine WBC Ur Squamous Epith Cells Amorphous Sediment Urine Bacteria Lab Acknowledgement Test Added
[2024-12-01] MEDS: LACTATED RINGERS 500 ML 500 ML IV ×2 (13:00→19:48)
--- NOTE | 2024-12-01 15:02 | NUTR.NU ---
RDN with MD consult for nutritional consult. Per MD report, patient is not pursuing hospice or comfort cares at this time. RDN attempted multiple times to visit with patient this afternoon, however patient was resting and unarousable. RDN will attempt to visit with patient at later date if still appropriate.
[2024-12-01] MEDS: ONDANSETRON ODT 4 MG TAB PO (19:02)
--- NOTE | 2024-12-01 19:30 | PC.NURSE ---
The patient is alert and orientated. Soft BPs noted intermittently throughout the day. Reports moderate pain in R hip/back improved with Tylenol and aqua K pad. Walker is patent, though draining minimal output. was notified. Poor appetite and not tolerating solids well. One episode of Nausea/dry heaving @ 1900, PRN zofran was given. Loose diarrhea this AM. The patients family visited throughout the day. Ax1 w/ GB and 2 w RW. Venous stasis changes noted in BLE. Cynthia LAZARO BSN
[2024-12-02] VITALS (9 sets, daily range): BP systolic 80–111; BP diastolic 40–62; PULSE 61–77; RESP 14–19; TEMP 36.5–36.7; O2SAT 89–98
[2024-12-02] MEDS: ACETAMINOPHEN 325 MG TABLET 650 MG PO ×4 (02:51→21:38)
[2024-12-02] MEDS: ONDANSETRON ODT 4 MG TAB PO ×3 (03:41→21:47)
[2024-12-02 06:38] LABS: HCO3 VBG 19 mmol/L (21-28); PCO2 VBG 34 mmHG (40-50)
[2024-12-02 06:45] LABS: Basophils Absolute Auto 0.03 K/uL (0.00-0.30); Basophils Percent Auto 0.5 % (0.0-3.0); Eosinophils Absolute Auto 0.04 K/uL (0.00-0.50); Eosinophils Percent Auto 0.7 % (0.0-7.0); Hematocrit 25.9 % (33.0-51.0); Hemoglobin* 8.8 gm/dL (12.0-16.0); Immature Granulocytes Abs Auto 0.01 K/uL (0.00-0.30); Immature Granulocytes Pct Auto 0.2 %; Lymphocytes Percent Auto 17.5 % (20-44); Mean Corpuscular HGB Conc 34 gm/dL (32-36); Mean Corpuscular Hemoglobin 30 pg (26-34); Mean Corpuscular Volume 89 fL (80-100); Monocytes Percent Auto 11.3 % (0.0-11.0); Neutrophils Absolute Auto 4.26 K/uL (1.7-7.0); Neutrophils Percent Auto 69.8 % (42.0-72.0); Platelet Count* 154 K/uL (140-440); RDW Coefficient of Variation % 13.7 % (11.5-15.5)
--- NOTE | 2024-12-02 06:45 | PC.NURSE ---
-End of shift [id number]: A&O pleasant and cooperative. Soft blood pressures overnight. Juan contacted. No new orders. Pt asymptomatic with pressures. VS otherwise stable. Pt tearful overnight. She expressed ivanna frustration with her nausea saying ? i can?t ?and don?t want to do this for much longer?. [employer] sat with pt at this time. Walker in place and producing small amounts of urine. Pt using call light appropriately.
[2024-12-02 06:56] LABS: Slide Review Reflex No
[2024-12-02 07:00] LABS: Chloride* 99 mmol/L (96-114); Potassium* 5.4 mmol/L (3.6-5.1); Sodium* 130 mmol/L (135-149)
[2024-12-02 07:03] LABS: Anion Gap 13 mEq/L (7-15); Blood Urea Nitrogen* 91 mg/dL (7-30); Carbon Dioxide* 18 mmol/L (20-32); Creatinine* 7.2 mg/dL (0.5-1.5); Estimated Glomerular Filt Rate 5 ml/min
[2024-12-02 07:04] LABS: Calcium* 8.4 mg/dL (8.4-10.6); Glucose* 101 mg/dL (60-115)
[2024-12-02 07:13] LABS: Phosphorus* 6.3 mg/dL (2.5-4.5)
[2024-12-02] MEDS: SODIUM BICARBONATE 650 MG TABLET PO ×2 (09:46→16:35)
[2024-12-02] MEDS: CALCIUM ACETATE 667 MG CAPSULE PO ×2 (09:46→16:35)
[2024-12-02] MEDS: OMEPRAZOLE 20 MG CAPSULE DR PO ×2 (09:46→21:37)
[2024-12-02] MEDS: LIDOCAINE 5% PATCH 1 PATCH TRANSDERMA (09:47)
[2024-12-02] MEDS: SODIUM CHLORIDE 0.9 % (FLUSH) 10 ML SYRINGE 5 ML IVF (09:49)
[2024-12-02] MEDS: LACTATED RINGERS 1000 ML 1,000 ML 125 ML IV (09:50)
--- NOTE | 2024-12-02 10:01 | PM.IMPN1 ---
Assessment and Plan Assessment and plan (1) Acute kidney injury: Problem comment: - with associated hyperkalemia and hyperphosphatemia - presumably combination of prerenal source (poor po intake, weight loss) and iatrogenic (was taking Ibuprofen for back pain), noted to have proteinuria on admission UA - Declines consideration for dialysis - treatment: IV fluids, sodium bicarbonate, furosemide if needed/tolerated, calcium acetate - holding nephrotoxins - reviewed findings/prognosis with family; no interest in aggressive management, not ready for comfort-focused measures but understands that she's hospice appropriate - current plan: home when medically appropriate (with HH), close f/u with PCP to evaluate renal function and plan Status: Acute (2) Metabolic acidosis: Problem comment: - gap closed as of 12/02, on sodium bicarbonate Status: Acute (3) Weight loss, non-intentional: Problem comment: - 79kg in clinic 11/04/24, currently 76kg (had estimated weight lower in ER, but objectively 74-76kg) - likely combination of H Pylori gastritis, iatrogenic from antibiotics - monitor for improvement after discontinuing Clarithromycin - Nutritional consult Status: Acute (4) Acute low back pain: Problem comment: - acute on chronic - low dose APAP, Lidocaine patch, PT Status: Acute (5) H. pylori duodenitis: Problem comment: - noted per pathology from 11/12 EGD, did not complete entire course of Clarithromycin/Amoxicillin 2/2 poor taste, nausea, pill burden Status: Acute (6) Anemia: Problem comment: - normocytic, Hgb fell from 11.1-->8.8 12/02 (possibly dilutional) - no evidence of acute bleeding, recently reassuring EGD and colonoscopy - follow Hgb Status: Acute Plan - per above (IVFs, TTE, follow Hgb) - likely home with close PCP f/u 1-2 days - granddaughter updated at bedside, questions answered Subjective Date Seen: 12/02/24 Interval history: Rossana was admitted to the hospital on 11/30 for acute kidney injury in the setting of weight loss, weakness, and acute on chronic back/hip pain after a fall at home. Imaging in ER revealed no abnormalities on CT of C/A/P, no acute fractures. Notable history of poor appetite and weight loss since August 2024, + H Pylori on EGD biopsies 11/12/24 (wasn't able to complete full course of Clarithromycin 2/2 pill burden and nausea), reassuring colonoscopy. Admission creatinine of 8.3 with K of 5.8, phosphorous 7.5. She declined transfer to tertiary care center for HD consideration. This morning, creatinine is 7.9 with K of 5.4 and phosphorous of 6.9. Glucose 217 (received Glucose in her sodium bicarb overnight, previous outpatient A1C 6.1). No growth on urine culture. We are holding nephrotoxins, treating with IVFs and Phoslo. Walker placed on admission and draining. Also received Sodium Bicarbonate on admission for metabolic acidosis. This morning, patient is seen with family at bedside. She continues to decline transfer to tertiary care center and has no desire to pursue hemodialysis. She understands the severity of her acute kidney injury. She was able to walk with therapies this morning, continues to have some back and hip pain. Anticipates going back to her apartment when medically appropriate for discharge, amenable to the addition of home health. Exam Const: Vital Signs, click to edit/add: Vital Signs - 24 hr 12/01/24 11:00 12/01/24 11:46 12/01/24 15:00 Temperature 98.0 F 98.2 F Pulse Rate Pulse Rate [Pulse Oximeter] 74 78 70 Respiratory Rate 18 16 16 Blood Pressure [Ri ght Arm] 79/54 L 81/37 L 102/52 L Pulse Oximetry 99 98 Oxygen Delivery Me thod Room Air Room Air Room Air 12/01/24 19:00 12/01/24 23:26 12/02/24 00:05 Temperature 97.9 F 98.1 F Pulse Rate 63 Pulse Rate [Pulse Oximeter] 80 68 Respiratory Rate 18 18 Blood Pressure [Ri ght Arm] 97/61 98/49 L Pulse Oximetry 96 94 Oxygen Delivery Me thod Room Air Room Air 12/02/24 02:53 12/02/24 06:41 Temperature Pulse Rate Pulse Rate [Pulse Oximeter] 63 Respiratory Rate 16 Blood Pressure [Ri ght Arm] 90/40 L 80/52 L Pulse Oximetry 94 Oxygen Delivery Me thod Room Air Labs Labs: Laboratory Results - last 24 hr 12/02/24 06:07 WBC 6.10 RBC 2.90 L Hgb 8.8 L Hct 25.9 L MCV 89 MCH 30 MCHC 34 RDW Coeff of James 13.7 Plt Count 154 Neut % (Auto) 69.8 Lymph % (Auto) 17.5 L [place] % (Auto) 11.3 H Eos % (Auto) 0.7 Baso % (Auto) 0.5 Neut # (Auto) 4.26 Lymph # (Auto) 1.10 [place] # (Auto) 0.70 Eos # (Auto) 0.04 Baso # (Auto) 0.03 Abs Immat Gran (auto) 0.01 Imm/Tot Granulo (auto) 0.2 VBG pH 7.350 VBG pCO2 34 L VBG pO2 56.0 H VBG HCO3 19 L Sodium 130 L Potassium 5.4 H Chloride 99 Carbon Dioxide 18 L Anion Gap 13 BUN 91 H Creatinine 7.2 H Estimated Creat Clear 4.00 Estimated GFR 5 Glucose 101 Calcium 8.4 Phosphorus 6.3 H*
[2024-12-02] MEDS: 0.9 % SODIUM CHLORIDE 500 ML 500 ML IV (10:34)
[2024-12-02] MEDS: 0.9 % SODIUM CHLORIDE 1000 ml 1,000 ML 250 ML IV (14:00)
[2024-12-02] MEDS: FUROSEMIDE 10 MG/ML inj 20 MG IVP (16:04)
[2024-12-02 16:50] LABS: Hemoglobin* 9.4 gm/dL (12.0-16.0)
[2024-12-02] MEDS: 5 % DEXTROSE IN LAC RINGER'S 1,000 ML 125 ML IV (18:00)
--- NOTE | 2024-12-02 19:20 | PC.NURSE ---
The patient is alert and orientated and pleasant with cares. VSS, BP's are soft and the patient is not symptomatic. The patient reports mild pain in L hip throughout the day, improved with aquak pad.Family visited throughout the day. Call light within reach. Cynthia LAZARO BSN
[2024-12-02] MEDS: PRAVASTATIN SODIUM 20 MG TABLET 40 MG PO (21:38)
[2024-12-03] MEDS: 5 % DEXTROSE IN LAC RINGER'S 1,000 ML 125 ML IV (02:03)
[2024-12-03 03:00] VITALS: BP 99/51; PULSE 61; RESP 17; TEMP 36.5; O2SAT 96
[2024-12-03] MEDS: ACETAMINOPHEN 325 MG TABLET 650 MG PO ×2 (04:05→10:49)
--- NOTE | 2024-12-03 06:31 | PC.NURSE ---
Shift note ([id number]): Patient pleasant, alert and oriented. Ambulated with walker, gait belt and assist of one. Denied pain. Weepy at HS when talking about her health issues and the health of her family members. Slept well. Catheter patent and draining light yellow urine. Total output this shift 625mL.?
[2024-12-03 06:50] LABS: HCO3 VBG 20 mmol/L (21-28); PCO2 VBG 37 mmHG (40-50); PO2 VBG 86.2 mmHG (25-47); pH VBG 7.332 (7.32-7.43)
[2024-12-03 07:06] LABS: Basophils Absolute Auto 0.03 K/uL (0.00-0.30); Basophils Percent Auto 0.6 % (0.0-3.0); Eosinophils Absolute Auto 0.11 K/uL (0.00-0.50); Eosinophils Percent Auto 2.1 % (0.0-7.0); Hematocrit 25.9 % (33.0-51.0); Hemoglobin* 8.7 gm/dL (12.0-16.0); Immature Granulocytes Abs Auto 0.04 K/uL (0.00-0.30); Immature Granulocytes Pct Auto 0.8 %; Lymphocytes Absolute Auto 1.16 K/uL (0.90-2.90); Lymphocytes Percent Auto 22.3 % (20-44); Mean Corpuscular HGB Conc 34 gm/dL (32-36); Mean Corpuscular Hemoglobin 30 pg (26-34); Mean Corpuscular Volume 91 fL (80-100); Monocytes Percent Auto 13.8 % (0.0-11.0); Neutrophils Absolute Auto 3.15 K/uL (1.7-7.0); Neutrophils Percent Auto 60.4 % (42.0-72.0); Platelet Count* 162 K/uL (140-440); RDW Coefficient of Variation % 14.2 % (11.5-15.5); Red Blood Count 2.86 m/uL (4.00-5.20); White Blood Count* 5.21 K/uL (4.50-11.00)
[2024-12-03 07:10] LABS: Slide Review Reflex No
[2024-12-03 07:17] LABS: Phosphorus* 5.7 mg/dL (2.5-4.5)
[2024-12-03 07:20] LABS: Albumin* 2.5 g/dL (3.3-5.0); Chloride* 101 mmol/L (96-114)
[2024-12-03 07:21] LABS: Potassium* 5.1 mmol/L (3.6-5.1); Sodium* 132 mmol/L (135-149)
[2024-12-03 07:23] LABS: Blood Urea Nitrogen* 82 mg/dL (7-30); Creatinine* 6.7 mg/dL (0.5-1.5); Estimated Glomerular Filt Rate 5 ml/min
[2024-12-03 07:24] LABS: Alanine Aminotransferase* 16 U/L (4-35); Alkaline Phosphatase* 55 U/L (40-150); Anion Gap 11 mEq/L (7-15); Aspartate Amino Transferase* 19 U/L (12-35); Bilirubin Total* 0.5 mg/dL (0.1-1.5); Calcium* 8.4 mg/dL (8.4-10.6); Carbon Dioxide* 20 mmol/L (20-32); Glucose* 132 mg/dL (60-115); Total Protein* 4.4 g/dL (6.0-8.3)
[2024-12-03 07:46] VITALS: BP 109/50; PULSE 62; RESP 18; TEMP 36.3; O2SAT 94
[2024-12-03 07:53] VITALS: PULSE 64
[2024-12-03] MEDS: SODIUM BICARBONATE 650 MG TABLET PO (08:24)
[2024-12-03] MEDS: CALCIUM ACETATE 667 MG CAPSULE PO (08:24)
[2024-12-03] MEDS: OMEPRAZOLE 20 MG CAPSULE DR PO (08:24)
[2024-12-03] MEDS: SODIUM CHLORIDE 0.9 % (FLUSH) 10 ML SYRINGE 5 ML IVF (08:24)
--- NOTE | 2024-12-03 09:16 | PM.DS1 ---
DS: Providers Provider Date Seen: 12/03/24 Date of admission: 11/30/24 23:49 Primary care physician: Not a Local Provider Admitting Clinician: David Ford MD Consults: OT, PT, SW, PHOTO LAB TECHNICIAN Attending Physician on discharge: Linda Camejo MD Date of Discharge: 12/03/24 DS: Diagnosis Discharge Diagnosis (1) H. pylori duodenitis: Status: Acute Problem details: - noted per pathology from 11/12 EGD, did not complete entire course of Clarithromycin/Amoxicillin 2/2 poor taste, nausea, pill burden (2) Anemia: Status: Acute Problem details: - normocytic, Hgb fell from 11.1-->8.8 12/02 (possibly dilutional) - no evidence of acute bleeding, recently reassuring EGD and colonoscopy - follow Hgb (3) Hypotension: Status: Acute Problem details: - no evidence of acute blood loss, TTE below and reassuring Final Impressions: 1. Normal LV size, normal wall thickness, normal global systolic function with an estimated EF of 70 - 75%. 2. Right ventricular cavity size is normal, global systolic RV function is normal. 3. Grade 2 pattern of LV diastolic filling. 4. The aortic valve is sclerotic and trileaflet, mild stenosis and no regurgitation. 5. Mitral stenosis with mild to moderately increased mean gradient of 6.1 mmHg at a heart rate of 74. (4) Hyperphosphatemia: Status: Acute Problem details: - Fluids, Calcium acetate and monitor (5) Hyperkalemia: Status: Acute Problem details: - treated with IV fluids during stay and prn Furosemide - ultimately not discharged on furosemide given hypotension (6) Acute kidney injury: Status: Acute Problem details: - with associated hyperkalemia and hyperphosphatemia - presumably combination of prerenal source (poor po intake, weight loss) and iatrogenic (was taking Ibuprofen for back pain) - noted to have proteinuria on admission UA and hypoalbuminemia - Declined consideration for dialysis, would consider outpatient Nephrology f/u for nonprocedural care - treatment: IV fluids, sodium bicarbonate, furosemide prn (not scheduled given hypotension), calcium acetate - held nephrotoxins during stay and upon d/c - reviewed findings/prognosis with family; no interest in aggressive management, not ready for comfort-focused measures but understands consideration of hospice (7) Acute low back pain: Status: Acute Problem details: - acute on chronic - low dose APAP, Lidocaine patch, PT - home with HH (8) Weight loss, non-intentional: Status: Acute Problem details: - 79kg in clinic 11/04/24, currently 76kg (had estimated weight lower in ER, but objectively 74-79kg during stay) - likely combination of H Pylori gastritis, iatrogenic from antibiotics (endorsed URI in August prior to symptoms, query COVID infection) - monitor for improvement after discontinuing Clarithromycin - Nutritional team followed during stay DS: Summary Hospital Course Hospital Course: Rossana was admitted to the hospital on 11/30 for acute kidney injury in the setting of weight loss, weakness, and acute on chronic back/hip pain after a fall at home. Imaging in ER revealed no abnormalities on CT of C/A/P, no acute fractures. Creatinine was 8.3 with K of 5.8, phosphorous of 7.5, + proteinuria, metabolic acidosis. Rossana declined transfer to tertiary care center for Nephrology consultation and HD consideration. Notable history of poor appetite and weight loss since August 2024. This started after an URI (wasn't tested for COVID acutely). Workup revealed + H Pylori on EGD biopsies 11/12/24 (wasn't able to complete full course of Clarithromycin 2/2 pill burden and nausea), + reassuring colonoscopy. During stay: - urine culture negative - creatinine improved; 6.7 upon discharge. K normalized (5.1 upon discharge) and phosphorous improved to 5.7 - held nephrotoxins, received Calcium Carbonate and Sodium bicarbonate - treated with IVFs for prerenal DIYA and hypotension - TTE obtained for hypotension with results below - seen by Nutrition team for diet concerns, continued PPI but stopped abx for H Pylori - considered daily furosemide to increase urine and renal perfusion; ultimately decided to not initiate this given hypotension during stay Final Impressions: 1. Normal LV size, normal wall thickness, normal global systolic function with an estimated EF of 70 - 75%. 2. Right ventricular cavity size is normal, global systolic RV function is normal. 3. Grade 2 pattern of LV diastolic filling. 4. The aortic valve is sclerotic and trileaflet, mild stenosis and no regurgitation. 5. Mitral stenosis with mild to moderately increased mean gradient of 6.1 mmHg at a heart rate of 74. We are holding nephrotoxins, treating with IVFs and Phoslo. Walker placed on admission and draining. Also received Sodium Bicarbonate on admission for metabolic acidosis. Discussed DIYA at length with patient and family; they understand severity of new diagnosis and options for followup (tertiary care center for Nephrology/HD, vs outpatient management vs palliative care). They would like to discharge home with HH and close PCP followup to discuss options and goals of care further. Status at Discharge Functional status at discharge: uses cane/walker Overall status at discharge: patient is progressing back to baseline Time Spent with Patient Time attestation: Total time spent providing and/or coordinating discharge services: Time spent: Greater than 30 minutes Exam Narrative: Exam Narrative: GEN: Alert and oriented, sitting comfortably in bedside chair HEENT: EOMIs bilaterally, no scleral icterus CV: RRR, No concerning murmurs R: LCTA bilaterally without concerning wheezing or rales Ext: wwp, no concerning edema Skin: Scattered bruising on extremities, no concerning rashes Neuro: No focal deficits or resting tremor, ambulating with walker Psych: Appropriate Const: Vital Signs, click to edit/add: Vital Signs - 24 hr 12/02/24 11:30 12/02/24 15:00 12/02/24 19:00 Temperature 97.7 F 97.7 F 97.7 F Pulse Rate Pulse Rate [Pulse Oximeter] 69 72 64 Respiratory Rate 16 14 16 Blood Pressure [Ri ght Arm] 99/62 100/52 L 107/50 L Pulse Oximetry 98 91 98 Oxygen Delivery Me thod Room Air Room Air Room Air 12/02/24 22:33 12/02/24 23:00 12/03/24 03:00 Temperature 97.7 F 97.7 F Pulse Rate 61 Pulse Rate [Pulse Oximeter] 77 61 Respiratory Rate 19 17 Blood Pressure [Ri ght Arm] 111/56 L 99/51 L Pulse Oximetry 89 96 Oxygen Delivery Me thod Room Air Room Air 12/03/24 07:46 Temperature 97.4 F L Pulse Rate Pulse Rate [Pulse Oximeter] 62 Respiratory Rate 18 Blood Pressure [Ri ght Arm] 109/50 L Pulse Oximetry 94 Oxygen Delivery Me thod Room Air DS: Data Data Completed and Pending Labs on day of discharge: Labs from last 24 hours 12/03/24 12/02/24 05:52 16:44 WBC 5.21 RBC 2.86 L Hgb 8.7 L 9.4 L Hct 25.9 L MCV 91 MCH 30 MCHC 34 RDW Coeff of [place] 14.2 Plt Count 162 Neut % (Auto) 60.4 Lymph % (Auto) 22.3 [place] % (Auto) 13.8 H Eos % (Auto) 2.1 Baso % (Auto) 0.6 Neut # (Auto) 3.15 Lymph # (Auto) 1.16 [place] # (Auto) 0.70 Eos # (Auto) 0.11 Baso # (Auto) 0.03 Abs Immat Gran (auto) 0.04 Imm/Tot Granulo (auto) 0.8 VBG pH 7.332 VBG pCO2 37 L VBG pO2 86.2 H VBG HCO3 20 L Sodium 132 L Potassium 5.1 Chloride 101 Carbon Dioxide 20 Anion Gap 11 BUN 82 H Creatinine 6.7 H Estimated Creat Clear 4.30 Estimated GFR 5 Glucose 132 H Calcium 8.4 Phosphorus 5.7 H Total Bilirubin 0.5 AST 19 ALT 16 Alkaline Phosphatase 55 Total Protein 4.4 L Albumin 2.5 L Discharge Plan Discharge Disposition: Home, Self-Care Date of Admission: 11/30/24 23:49 Attending Provider on Discharge: Linda Camejo Primary Care Provider: Provider,Not a Local Condition: Improved Anticipated Discharge Date/Time: 12/03/24 11:00 Discharge Medications: New calcium acetate(phosphat bind) 667 mg Capsule 667 mg PO TIDWM Qty: 90 0RF acetaminophen 325 mg Tablet 650 mg PO Q6H Qty: 30 0RF lidocaine 5 % Adhesive Patch,Medicated 1 patch transdermal Q24H Qty: 30 0RF Continued omeprazole 40 mg capsule,delayed release(DR/EC) 40 mg PO DAILY Discontinued spironolactone 25 mg tablet 25 mg PO DAILY metoprolol succinate 100 mg tablet extended release 24 hr 100 mg PO DAILY amlodipine 5 mg tablet 5 mg PO DAILY hydrochlorothiazide 25 mg tablet 25 mg PO DAILY pravastatin 40 mg tablet 40 mg PO .qod Patient Comments: TAKE ONE TABLET BY MOUTH EVERY OTHER DAY lisinopril 2.5 mg tablet 2.5 mg PO DAILY amoxicillin 500 mg capsule 1,000 mg PO BID clarithromycin 500 mg tablet 500 mg PO BID aspirin 81 mg tablet,delayed release (DR/EC) 81 mg PO DAILY ibuprofen 200 mg tablet 400 mg PO TID PRN acetaminophen 500 mg tablet 500 mg PO Q6H PRN Discharge Orders: Discharge Order (Routine); Ordered 12/03/24 Ordered By: Linda Camejo Patient Education: Acetaminophen (By mouth), Calcium Acetate (By mouth) (Calphron, Eliphos, PhosLo, Phoslyra), Lidocaine Patch (On the skin), Acute Kidney Injury (DC), Fall Prevention for Older Adults (DC) Additional Instructions: Your kidney function is still very poor, but improving. You are STOPPING all of your medications expect Omeprazole (this is an acid eyeglass maker, helps with your stomach issues). See Luana as scheduled next week - she will check your blood pressure and kidney function again, and you can discuss future options. We are STARTING Calcium Acetate (this helps your body bind some of the toxins that your kidney can't process). For PAIN, start a LIDOCAINE patch (this is to be put on your back or hip) and continue TYLENOL as needed (you can take this every 6 hours throughout the day). NO IBUPROFEN, NO ALEVE, NO NAPROXEN. Work on SMALL, FREQUENT bland meals for your nausea (crackers, broth, yogurt). Activity Level: No strenuous activity Discharge Diet: Other Diet Detail: per above Follow Up Appointments: Luana Bazan PA-C [Referring] - 12/06/24 1:50 pm ([facility] for follow-up.) Provider,Not a Local [Primary Care Provider] - Forms: Video[employer] Info Instructions
[2024-12-03] MEDS: LIDOCAINE 5% PATCH 1 PATCH TRANSDERMA (10:49)
== END 2024-12-03 11:22 | disposition home or self-care (01) | DRG 683 ==
LOC: ED 18:21 → MEDSURG 23:33
PROVIDERS: Family Medicine; Admitting Provider Family Medicine; Emergency Provider Emergency Medicine; Visit Provider Family Medicine
DX: N17.9 Acute kidney failure, unspecified (principal); E44.0 Moderate protein-calorie malnutrition; E87.21 Acute metabolic acidosis; E87.5 Hyperkalemia; E83.39 Other disorders of phosphorus metabolism; R63.0 Anorexia; R43.8 Other disturbances of smell and taste; R63.4 Abnormal weight loss; G89.29 Other chronic pain; M54.50 Low back pain, unspecified; Z96.652 Presence of left artificial knee joint; Z96.651 Presence of right artificial knee joint; Z90.12 Acquired absence of left breast and nipple; Z85.3 Personal history of malignant neoplasm of breast; M25.552 Pain in left hip; Z68.33 Body mass index [BMI] 33.0-33.9, adult; B96.81 Helicobacter pylori [H. pylori] as the cause of diseases classified elsewhere; K29.80 Duodenitis without bleeding; D64.9 Anemia, unspecified; I12.9 Hypertensive chronic kidney disease with stage 1 through stage 4 chronic kidney disease, or unspecified chronic kidney disease; N18.30 Chronic kidney disease, stage 3 unspecified; I95.9 Hypotension, unspecified; W18.39XA Other fall on same level, initial encounter; Z91.81 History of falling; Y93.01 Activity, walking, marching and hiking; Y92.038 Other place in apartment as the place of occurrence of the external cause; M48.061 Spinal stenosis, lumbar region without neurogenic claudication
CPT/HCPCS: 36415; 51701; 72131; 73502; 74176; 80048; 80053; 81001; 82803; 83735; 84100; 84132; 84550; 85018; 85025; 87086; 92610; 93306; 97110; 97116; 97162; 97166; 97530; 97535; 99284; 99285; A9270; J0696; J1171; J1938; J2470; J7030; J7070; J7120